=== PATIENT | female | born 1940 | race Caucasian/White ===

== ENCOUNTER 2021-01-07 12:29 | Outpatient (REF) | payer MEDICARE, BC, SELFPAY ==
--- NOTE | ~2021-01-07 | MM_ITS ---
EXAMINATION: MM SCREENING DIGITAL BREAST TOMOSYNTHESIS, BILATERAL CLINICAL INFORMATION: Right breast cancer 2009 status post lumpectomy and radiation. Due for yearly. COMPARISON: Mammography: 10/18/2018, 02/02/2017, 12/02/2015 TECHNIQUE: Digital breast tomosynthesis is performed in both the craniocaudal and mediolateral oblique views along with computer-aided detection (CAD). Synthesized 2D images are generated from the tomosynthesis. Additional exaggerated right CC view is provided. FINDINGS: There are scattered areas of fibroglandular density (ACR BI-RADS breast composition Category b). Parenchymal pattern is similar to prior studies. The left breast is unremarkable. There is no interval mass or architectural abnormality or abnormal calcifications. The right breast has post therapy changes with reduced breast size and old stable scarring. There are benign coarse calcifications predominantly in the scar. There are no significant changes. MM/MM tomosynthesis screening BI IMPRESSION: No mammographic evidence of malignancy. Post therapy changes right breast. ASSESSMENT: BI-RADS 2: Benign RECOMMENDATION: Routine annual mammography screening. This patient's information was entered into a reminder system with a target due date for their next mammogram.
== END 2021-01-07 12:30 | disposition home or self-care (01) ==
LOC: HO.MAMMO 12:29
PROVIDERS: Visit Provider Internal Medicine Medical Oncology
DX: Z12.31 Encounter for screening mammogram for malignant neoplasm of breast (principal)
CPT/HCPCS: 77063; 77067

== ENCOUNTER 2021-10-18 09:59 | Outpatient (REF) | payer MEDICARE, BC, SELFPAY ==
--- NOTE | ~2021-10-18 | XR_ITS ---
EXAMINATION: XR CHEST CLINICAL INFORMATION: Shortness of breath COMPARISON: Previous chest x-ray April 2012 TECHNIQUE: 2 views of the chest were obtained. FINDINGS: The cardiac and mediastinal contours are stable. The lungs are clear. There is no pleural effusion or pneumothorax. There are surgical clips in the right axilla. There are degenerative changes of the spine. XR/XR chest 2V IMPRESSION: No evidence for acute disease in the chest.
[2021-10-18 10:20] LABS: MANUAL DIFF FLAG NO
[2021-10-18 10:42] LABS: Basophils Percent Auto 0.4 % (0-2); Eosinophils Absolute Auto 0.2 X10*3/uL (0.0-0.4); Hematocrit 42.8 % (37.0-47.0); Hemoglobin 14.2 g/dl (12.0-16.0); Imm Gran Abs Auto 0.02 X10*3/uL (0.00-0.03); Imm Gran Pct Auto 0.3 % (0.0-0.4); Lymphocytes Absolute Auto 1.8 X10*3/uL (1.2-4.9); Lymphocytes Percent Auto 24.4 % (20-40); Mean Corpuscular HGB Conc 33.2 g/dl (31.0-35.0); Mean Corpuscular Hemoglobin 29.4 pg (27.0-33.0); Mean Corpuscular Volume 88.6 fL (80.0-98.0); Mean Platelet Volume 11.4 fL (9.4-12.3); Monocytes Absolute Auto 0.6 X10*3/uL (0.1-1.2); Monocytes Percent Auto 7.9 % (2-11); Neutrophils Absolute Auto 4.9 x10*3/uL (2.0-8.3); Platelet Count 284 X10*3/uL (160-400); Red Blood Count 4.83 X10*6/uL (4.20-5.50); Red Cell Distribution Width 13.5 % (11.0-16.0); White Blood Count 7.6 X10*3/uL (4.8-10.8)
[2021-10-18 11:31] LABS: Alanine Aminotransferase 17 U/L (0-31); Albumin Level 4.3 g/dL (3.5-5.0); Alkaline Phosphatase 64 U/L (39-117); Anion Gap 14 (12-20); Aspartate Amino Transferase 19 U/L (5-31); Bilirubin Total 0.3 mg/dL (0.0-1.0); Blood Urea Nitrogen 29 mg/dL (9-16); Calcium 9.7 mg/dL (8.4-10.2); Carbon Dioxide 26 mmol/L (22-29); Chloride 105 mmol/L (96-108); Cholesterol 208 mg/dL; Estimated Glomerular Filt Rate 46; Glucose Fasting 107 mg/dL (60-99); HDL Cholesterol 45 mg/dL; LDL Cholesterol Calculated 125 mg/dl; Potassium 4.2 mmol/L (3.3-5.1); Sodium 141 mmol/L (135-145); Total Protein 7.4 g/dL (6.5-8.0); Triglycerides 191 mg/dL
== END 2021-10-18 10:00 | disposition home or self-care (01) ==
LOC: HO.LAB 09:59
PROVIDERS: PCP Internal Medicine Medical Oncology; Visit Provider Internal Medicine Medical Oncology
DX: E78.5 Hyperlipidemia, unspecified (principal); I10 Essential (primary) hypertension; R06.02 Shortness of breath
CPT/HCPCS: 36415; 71046; 80053; 80061; 85025

== ENCOUNTER 2022-06-02 11:48 | Outpatient (REF) | payer MEDICARE, BC, SELFPAY ==
--- NOTE | ~2022-06-02 | MM_ITS ---
EXAMINATION: MM SCREENING DIGITAL BREAST TOMOSYNTHESIS, BILATERAL CLINICAL INFORMATION: Right lumpectomy for breast cancer, 2008. Due for yearly. COMPARISON: Mammography: 01/07/2021, 10/18/2018, 02/02/2017 TECHNIQUE: Digital breast tomosynthesis is performed in both the craniocaudal and mediolateral oblique views along with computer-aided detection (CAD). Synthesized 2D images are generated from the tomosynthesis. Additional right MLO view is provided. FINDINGS: There are scattered areas of fibroglandular density (ACR BI-RADS breast composition Category b). The parenchymal pattern is similar to prior studies and there is no developing density or interval mass or architectural abnormality. Left breast shows no abnormal calcifications. Right breast again shows post therapy changes with decreased breast size and old scarring posterior upper breast. There are benign coarse calcifications within the scar. In addition, some fine calcifications versus pseudocalcification digital processing artifact in the scar. Patient will be recalled for additional magnification views to fully characterize. MM/MM tomosynthesis screening BI IMPRESSION: Right: -Post therapy changes with old scarring posterior upper breast. -Question fine calcifications versus pseudocalcification digital processing artifact in the scar. Left: -No mammographic evidence of malignancy. ASSESSMENT: BI-RADS 0: Incomplete - Need Additional Imaging Evaluation RECOMMENDATION: 1. Additional views of the right breast (magnification CC, magnification ML). 2. Radiology department staff will contact the patient for additional imaging. This patient's information was entered into a reminder system with a target due date for their next mammogram.
== END 2022-06-02 11:49 | disposition home or self-care (01) ==
LOC: HO.MAMMO 11:48
PROVIDERS: PCP Internal Medicine Medical Oncology; Visit Provider Internal Medicine Medical Oncology
DX: Z12.31 Encounter for screening mammogram for malignant neoplasm of breast (principal)
CPT/HCPCS: 77063; 77067

== ENCOUNTER 2022-06-12 11:09 | Outpatient (REF) | payer MEDICARE, BC, SELFPAY ==
--- NOTE | ~2022-06-12 | MM_ITS ---
EXAMINATION: MM DIAGNOSTIC DIGITAL MAMMOGRAPHY, RIGHT CLINICAL INFORMATION: Recall from screening for question of fine calcifications versus pseudocalcification digital processing artifact in the lumpectomy scar. COMPARISON: Mammography: 06/02/2022, 01/07/2021, 10/18/2018 TECHNIQUE: Digital mammography is performed in the following views: Magnification spot CC, magnification spot ML. FINDINGS: There are scattered areas of fibroglandular density (ACR BI-RADS breast composition Category b). The additional views show benign-appearing coarse calcifications in the lumpectomy scar is similar to prior studies. No interval suspicious changes. Results are discussed with the patient and family at time of visit. MM/MM added views RT IMPRESSION: Additional views show no significant changes from prior studies. ASSESSMENT: BI-RADS 2: Benign RECOMMENDATION: Routine annual mammography screening. This patient's information was entered into a reminder system with a target due date for their next mammogram.
== END 2022-06-12 11:10 | disposition home or self-care (01) ==
LOC: HO.MAMMO 11:09
PROVIDERS: PCP Internal Medicine Medical Oncology; Visit Provider Internal Medicine Medical Oncology
DX: R92.1 Mammographic calcification found on diagnostic imaging of breast (principal)
CPT/HCPCS: 77065

== ENCOUNTER → 2022-07-17 11:33 | Outpatient (BNVA) | payer MEDICARE, BC, SELFPAY | PROVIDERS: PCP Internal Medicine Medical Oncology; Visit Provider Nurse Practitioner Family | DX: R25.1 Tremor, unspecified (principal); R29.818 Other symptoms and signs involving the nervous system; J38.3 Other diseases of vocal cords | CPT/HCPCS: 99212 ==

== ENCOUNTER 2023-03-01 10:32 | Outpatient (REF) | payer MEDICARE, BC, SELFPAY ==
--- NOTE | ~2023-03-01 | XR_ITS ---
EXAMINATION: XR LUMBOSACRAL SPINE CLINICAL INFORMATION: Acute right-sided back pain. COMPARISON: 07/04/2018 lumbar spine radiographs. TECHNIQUE: Three views of the lumbosacral spine. FINDINGS: Moderate to severe degenerative disc disease is seen at L5-S1 with disc space narrowing, sclerosis and vacuum disc. Bilateral neural foraminal narrowing and facet arthropathy seen at this level as well. Mild grade 1 anterolisthesis of L4 over L5. Mild to moderate degenerative changes in the remainder of the lumbar spine most pronounced at L1-2 and L2-3. There is no acute fracture. The soft tissues are unremarkable. XR/XR lumbar spine 2-3V IMPRESSION: 1. L5-S1 moderate to severe degenerative disc disease and bilateral neural foraminal narrowing. 2. L4-5 mild grade 1 anterolisthesis. 3. Mild to moderate degenerative changes in the remainder of the lumbar spine.
== END 2023-03-01 10:33 | disposition home or self-care (01) ==
LOC: HO.XRAY 10:32
PROVIDERS: PCP Internal Medicine Medical Oncology; Visit Provider Internal Medicine Medical Oncology
DX: M54.50 Low back pain, unspecified (principal)
CPT/HCPCS: 72100

== ENCOUNTER 2023-04-24 11:39 | Outpatient (AMB) | payer MEDICARE, BC, SELFPAY ==
--- NOTE | 2023-04-24 11:41 | MHC.OFFVIS ---
Intake Vital Signs 04/24/23 11:42 Height 5 ft 4 in Weight 154 lb BMI 26.4 BP 130/70 Pulse 69 Pulse Source Pulse Oximeter Pulse Oximetry (%) 97 Oxygen Delivery Method Room Air Intake Visit Reasons: 3m follow up - Confirmed Intake Note: Patient presents for 3 month follow up. Patient states just the same I got a walker ordered from [facility] i was loosing my balance Allergies No Known Allergies Allergy (Verified 07/17/22 11:52) HPI HPI Comments History of Present Illness Details 82-yr-old female presents for f/u visit. Pt denies any significant interval medical history changes. 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 Her last Botox tx was 2-3 yrs ago. She feels it was helpful. And now it is becoming harder to speak. Denies any difficulty swallowing. Was feeling more stress, but feels this would be better if she does the botox tx as talking would be less stressful. Since the last visit, she requested a 4-wheeled seated walker, which we ordered. Pt states the walker makes her feel much more secure- has been very helpful with her balance. Denies any interval falls. She states tremor is nothing to speak of . She can still self-apply mascara and piano. She is trying to stay active- working and cleaning. [facility] Surgical History (Updated 07/17/22 @ 11:53 by Cristin Muñoz) H/O lumpectomy Knee joint replacement by other means Family History Father Cirrhosis of liver Social History Alcohol intake: never Patient Tobacco Use Status: Never used Tobacco Review of Systems Const All systems reviewed & are unremarkable except as noted in HPI and below Physical Exam Vital Signs: Last Vital Signs Pulse 69 04/24/23 11:42 BP 130/70 04/24/23 11:42 Pulse Ox 97 04/24/23 11:42 Oxygen Delivery Method Room Air 04/24/23 11:42 BMI result Body Mass Index 26.4 Const General: cooperative and no acute distress Resp Effort & Inspection: normal respiratory effort and able to speak in complete sentences Neuro Other: A&O x's 3 Spasmodic dysphonia Very mild BUE postural tremor. No UE tone. FFM intact Stands quickly, much steadier gait with using walker. . 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 Concur w/ re-establishing care w/ [facility] to resume Botox tx- will initiate referral if needed- pt will call. f/u in 9 months or sooner prn. 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
[2023-04-24 11:42] VITALS: BP 130/70; PULSE 69; O2SAT 97; BMI 26.4
== END 2023-04-24 12:11 | disposition home or self-care (01) ==
PROVIDERS: PCP Internal Medicine Medical Oncology; Visit Provider Nurse Practitioner Family
DX: J38.3 Other diseases of vocal cords (principal); R25.1 Tremor, unspecified; R26.9 Unspecified abnormalities of gait and mobility; R29.818 Other symptoms and signs involving the nervous system
CPT/HCPCS: 99213

== ENCOUNTER → 2023-04-24 11:39 | Outpatient (BNVA) | payer MEDICARE, BC, SELFPAY | PROVIDERS: PCP Internal Medicine Medical Oncology; Visit Provider Nurse Practitioner Family | DX: J38.3 Other diseases of vocal cords (principal); R25.1 Tremor, unspecified; R26.9 Unspecified abnormalities of gait and mobility; R29.818 Other symptoms and signs involving the nervous system | CPT/HCPCS: 99212 ==

== ENCOUNTER 2023-09-04 11:02 | Outpatient (AMB) | payer MEDICARE, BC, SELFPAY ==
--- NOTE | 2023-09-04 11:06 | MHC.OFFVIS ---
Intake Vital Signs 09/04/23 11:17 Height 5 ft 4 in Weight 152 lb BMI 26.1 BP 132/70 Blood Pressure Location Lt brachial Position Sitting Pulse 71 Pulse Source Pulse Oximeter Pulse Oximetry (%) 98 Oxygen Delivery Method Room Air Intake Visit Reasons: 9 mnts f/u appt - CONF Intake Note: Patient presents for 9 moths f/u balance is getting worse. Primary care doctor prescribed antidepressants and started to fall so she stop them. On 09/19/23 pt. is having a MRI appointment. Allergies No Known Allergies Allergy (Verified 09/04/23 11:15) Medication List - Last Reconciled 09/05/23 by RAFAELA Bonds amlodipine 10 mg PO DAILY propranolol 80 mg PO BID walker 4 wheeled walker w/ seat and brakes- use when walking HPI HPI Comments History of Present Illness Details 63-year-old female presents for follow-up of tremor and gait difficulties. Accompanied by her daughter. Patient reports that in the fall, she felt something come over her. She states her PCP felt she was depressed. She was started on sertraline and then citalopram. While on these medications she had increased falls. She felt like she was being pushed forward, although could fall sideways. One fall was particularly concerning, as it occurred while she was cooking. She did stop the citalopram in her last fall was in 3-4 days of stopping the citalopram. He does continue to take her amlodipine 10 mg q.a.m., propranolol 80 mg b.i.d., and lorazepam as needed. Since her tremor has been stable. She she states she has not had anymore it is pulling sensations. She is walking with a 4 wheeled walker. However she is still having difficulty getting in and out of the shower, even with a walk-in shower.. She is doing less overall, for instance she is not driving at this time she is no longer going to her piano glasses. She can feel tired at times, Arie lead down for few minutes. But she is still active in the house, tries to clean it does extend her. She now has a home health aide and she is struggling with the reality that she might need a home health aide at all. She still feels a sense of depression, but she does not understand why. She does not currently have a therapist. She felt that she wore her previous therapist. She denies orthostatic lightheadedness, dizziness, diplopia, headaches. [place] [facility] [place] [facility] Surgical History H/O lumpectomy Knee joint replacement by other means Family History Father Cirrhosis of liver Social History Alcohol intake: never Patient Tobacco Use Status: Never used Tobacco Physical Exam Vital Signs: Last Vital Signs Pulse 71 09/04/23 11:17 BP 132/70 09/04/23 11:17 Pulse Ox 98 09/04/23 11:17 Oxygen Delivery Method Room Air 09/04/23 11:17 BMI result Body Mass Index 26.1 Const General: cooperative and no acute distress Resp Effort & Inspection: normal respiratory effort and able to speak in complete sentences Neuro Other: A&O x's 3 Spasmodic dysphonia Very mild BUE postural tremor. Stands quickly, quick gait with using walker. . 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 Will request home physical and occupational therapy, for home safety, ADL, gait, fall risk, strength endurance eval and treat. As well as to obtain orthostatic blood pressure and heart rate x's 3 (BP & HR x's 2: After laying supine for 5 minutes, upon standing at 1 minute, upon standing at 3 minutes) Patient is homebound as she requires a walker and 1 assist to leave the house safely. Patient is no longer driving. Due to her gait difficulties and fall risk. Will refer patient for an in-person psychologist local to her. Upon review of orthostatics blood pressure and heart rate, consider reducing propranolol dose- note patient is hesitant to do this as sh has been on propranolol 80 mg b.i.d. for years. Patient has decided to hold contacting [facility] to resume Botox tx- for spasmodic dysphonia. Follow-up in 3 months or sooner This note is constructed using voice recognition software. While every effort has been made to ensure accuracy, bindery assistant errors may have been included. Orders: Referrals [facility] Referral J38.3 - Other diseases of vocal cords, R25.1 - Tremor, unspecified, R26.9 - Unspecified abnormalities of gait and mobility, R29.6 - Repeated falls, R29.818 - Other symptoms and signs involving the nervous system Psychology Referral F32.A - Depression, unspecified Coding Level of Care Code Est Pt Level 4 (07089) Diagnoses Gait disorder R26.9 Difficulty balancing R29.818 Frequent falls R29.6 Tremor R25.1 Spasmodic dysphonia J38.3 Depression F32.A
[2023-09-04 11:17] VITALS: BP 132/70; PULSE 71; O2SAT 98; BMI 26.1
== END 2023-09-04 12:11 | disposition home or self-care (01) ==
LOC: HO.HSMC 11:02
PROVIDERS: PCP Internal Medicine Medical Oncology; Visit Provider Nurse Practitioner Family
DX: R26.9 Unspecified abnormalities of gait and mobility (principal); R29.818 Other symptoms and signs involving the nervous system; R29.6 Repeated falls; R25.1 Tremor, unspecified; J38.3 Other diseases of vocal cords; F32.A Depression, unspecified
CPT/HCPCS: 99214

== ENCOUNTER → 2023-09-04 11:02 | Outpatient (BNVA) | payer MEDICARE, BC, SELFPAY | PROVIDERS: PCP Internal Medicine Medical Oncology; Visit Provider Nurse Practitioner Family | DX: R26.9 Unspecified abnormalities of gait and mobility (principal); R29.818 Other symptoms and signs involving the nervous system; R29.6 Repeated falls; R25.1 Tremor, unspecified; J38.3 Other diseases of vocal cords; F32.A Depression, unspecified | CPT/HCPCS: 99212 ==

== ENCOUNTER 2023-09-14 07:53 | Outpatient (REF) | payer MEDICARE, BC, SELFPAY ==
[2023-09-14 08:07] LABS: MANUAL DIFF FLAG NO
[2023-09-14 08:37] LABS: Basophils Absolute Auto 0.1 X10*3/uL (0.0-0.2); Basophils Percent Auto 0.7 % (0-2); Eosinophils Absolute Auto 0.3 X10*3/uL (0.0-0.4); Eosinophils Percent Auto 3.5 % (0-4); Hematocrit 42.4 % (37.0-47.0); Hemoglobin 14.3 g/dl (12.0-16.0); Imm Gran Abs Auto 0.04 X10*3/uL (0.00-0.03); Imm Gran Pct Auto 0.4 % (0.0-0.4); Lymphocytes Absolute Auto 1.9 X10*3/uL (1.2-4.9); Lymphocytes Percent Auto 21.2 % (20-40); Mean Corpuscular HGB Conc 33.7 g/dl (31.0-35.0); Mean Corpuscular Hemoglobin 30.2 pg (27.0-33.0); Mean Corpuscular Volume 89.5 fL (80.0-98.0); Monocytes Absolute Auto 0.7 X10*3/uL (0.1-1.2); Neutrophils Absolute Auto 5.9 x10*3/uL (2.0-8.3); Neutrophils Percent Auto 66.2 % (45-73); Platelet Count 253 X10*3/uL (160-400); Red Blood Count 4.74 X10*6/uL (4.20-5.50); Red Cell Distribution Width 13.2 % (11.0-16.0); White Blood Count 8.9 X10*3/uL (4.8-10.8)
[2023-09-14 09:14] LABS: Alanine Aminotransferase 21 U/L (0-31); Albumin Level 4.2 g/dL (3.5-5.0); Alkaline Phosphatase 61 U/L (39-117); Anion Gap 13 (12-20); Aspartate Amino Transferase 21 U/L (5-31); Bilirubin Total 0.6 mg/dL (0.0-1.0); Blood Urea Nitrogen 26 mg/dL (9-16); Calcium 9.7 mg/dL (8.4-10.2); Carbon Dioxide 26 mmol/L (22-29); Chloride 104 mmol/L (96-108); Cholesterol 229 mg/dL (<200); Estimated Glomerular Filt Rate > 60; Glucose Fasting 88 mg/dL (60-99); HDL Cholesterol 48 mg/dL (>40); LDL Cholesterol Calculated 154 mg/dL (<100); Potassium 3.8 mmol/L (3.3-5.1); Sodium 139 mmol/L (135-145); Total Protein 7.5 g/dL (6.5-8.0); Triglycerides 138 mg/dL (<150)
[2023-09-14 09:51] LABS: Vitamin B12 714 pg/mL (200-900)
[2023-09-21 16:53] LABS: Vitamin B1 19 nmol/L (8-30)
== END 2023-09-14 07:54 | disposition home or self-care (01) ==
LOC: HO.LAB 07:53
PROVIDERS: PCP Internal Medicine Medical Oncology; Visit Provider Internal Medicine Medical Oncology
DX: E78.5 Hyperlipidemia, unspecified (principal); E53.9 Vitamin B deficiency, unspecified
CPT/HCPCS: 36415; 80053; 80061; 82607; 84425; 85025

== ENCOUNTER 2023-09-19 09:17 | Outpatient (REF) | payer MEDICARE, BC, SELFPAY ==
--- NOTE | ~2023-09-19 | CT_ITS ---
EXAMINATION: CT head/brain w IV con CLINICAL INFORMATION: Reason for Exam ATAXIA GAIT COMPARISON: None. TECHNIQUE: Contiguous axial imaging was performed from the skull base to vertex following intravenous administration of 85 mL Omnipaque 350. Sagittal and coronal reformatted images were obtained. This CT examination was performed using dose optimization techniques as appropriate, variously including the following: * Automated exposure control * Adjustment of mA and/or kV according to patient size (this includes techniques or standardized protocols for targeted exams where dose is matched to indication/reason for exam; i.e. extremities or head) Use of iterative reconstruction technique DLP: 758 mGy-cm FINDINGS: Moderate global cerebral volume loss. Cerebellar atrophy mild cerebellar and superior vermian bilaterally. Patchy periventricular and deep white matter hypoattenuation is nonspecific but likely reflects sequelae of mild chronic microangiopathy. No territorial loss of cruz-white differentiation. No acute intracranial hemorrhage in limitations of postcontrast technique. No extra-axial fluid collection. No mass lesion, significant mass effect, or herniation pattern. Calcific plaque along the bilateral carotid siphons. Preserved contrast opacification of the intracranial vascular structures. Please note MRI would be more sensitive modality for assessment of pathologic intracranial enhancement. Lens replacements. Trace mucosal disease in the maxillary sinuses. No mastoid effusion. Osseous structures are intact. CT/CT head/brain w IV con IMPRESSION: No acute intracranial abnormality. Moderate global cerebral volume loss and mild bilateral cerebellar and superior vermian atrophy. Mild chronic microangiopathy.
[2023-09-19] MEDS: iohexoL 350 MG/ML 100 ML INFUS..BTL IV (09:52)
== END 2023-09-19 09:18 | disposition home or self-care (01) ==
LOC: HO.CT 09:17
PROVIDERS: PCP Internal Medicine Medical Oncology; Visit Provider Internal Medicine Medical Oncology
DX: R26.0 Ataxic gait (principal)
CPT/HCPCS: 70460; Q9967

== ENCOUNTER 2024-01-01 10:13 | Outpatient (AMB) | payer MEDICARE, BC, SELFPAY ==
[2024-01-01 10:14] VITALS: BP 122/70; PULSE 62; O2SAT 95; BMI 26.7
--- NOTE | 2024-01-01 10:14 | MHC.OFFVIS ---
Vital Signs 01/01/24 10:14 Height 5 ft 4 in Weight 155 lb 6 oz BMI 26.7 BP 122/70 Blood Pressure Location Rt brachial Position Sitting Pulse 62 Pulse Source Pulse Oximeter Pulse Oximetry (%) 95 Oxygen Delivery Method Room Air Intake Visit Reasons: 6 mnts-CONF Intake Note: Patient presents for 6 month follow up. my main issue is my balance, is off. Allergies No Known Allergies Allergy (Verified 01/01/24 10:17) Medication List - Last Reconciled 01/01/24 by RAFAELA Bonds amlodipine 10 mg PO DAILY propranolol 80 mg PO BID walker 4 wheeled walker w/ seat and brakes- use when walking HPI Comments Details: 83-yr-old female presents for f/u visit. Pt denies any significant interval medical history changes. Pt started home PT. Pt states she is working on vestibular and balance difficulties. Pt feels that this has been helpful, however she still needs to work on her balance. She feels more able to do some of things she was doing before- such as leaving the house. She is still off-balance when she bends over or when walking. Also if she becomes hungry- has always needed to eat frequently (as a child, she would be shaky if she was hungry, but not now). She denies dizziness or lightheadedness. Can feel the ground when she is walking. She denies any interval falls. Walking w/ a walker. The plan is for her to transition from home PT to out-pt PT. She feels her mood is better. Using Lorazepam prn sparingly- for anxiety which helps. She is playing the piano again- cannot drive to the lessons anymore- but is in contact w/ her medical pathology teacher. Her spasmotic dysphonia is stable. She had a f/u [facility] appt- and resumed Botox. She is not sure if the Botox was as effective as before, but it has been a few yrs since her last Botox tx. She denies any dysphagia. 09/19/23, CT/CT head/brain w IV con IMPRESSION: No acute intracranial abnormality. Moderate global cerebral volume loss and mild bilateral cerebellar and superior vermian atrophy. Mild chronic microangiopathy. [facility] Surgical History H/O lumpectomy Knee joint replacement by other means Family History Father Cirrhosis of liver Social History Alcohol intake: never Patient Tobacco Use Status: Never used Tobacco Review of Systems Const All systems reviewed & are unremarkable except as noted in HPI and below Physical Exam Vital Signs: Last Vital Signs Pulse 62 01/01/24 10:14 BP 122/70 01/01/24 10:14 Pulse Ox 95 01/01/24 10:14 Oxygen Delivery Method Room Air 01/01/24 10:14 BMI result Body Mass Index 26.7 Const General: cooperative and no acute distress Resp Effort & Inspection: normal respiratory effort and able to speak in complete sentences Neuro Other: A&O x's 3. Spasmotic dysphonia. No UE tremor noted. Stands quickly, good posture, wide based steps, unsteady without walker, steady w/ walker. 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 Moderate global cerebral volume loss and mild bilateral cerebellar and superior vermian atrophy. Mild chronic microangiopathy. Continue to optimize CV risk factors- BP is normotensive. Continue engaging in regular physical, social, and cognitive activities. Continue home PT, once completed, transition to out-pt PT. Continue Propranolol 80 mg b.i.d.- consider reducing if she develops lightheadedness. May continue Lorazepam prn- sparingly- advised it can cause balance issues. ? F/u w/ [facility] for Botox tx- for spasmodic dysphonia. ? Follow-up in 6 months or sooner Coding Level of Care Code Est Pt Level 4 (18114) Diagnoses Tremor R25.1 Difficulty balancing R29.818 Spasmodic dysphonia J38.3 Movement disorder G25.9
== END 2024-01-01 11:02 | disposition home or self-care (01) ==
PROVIDERS: PCP Internal Medicine Medical Oncology; Visit Provider Nurse Practitioner Family
DX: R25.1 Tremor, unspecified (principal); G25.9 Extrapyramidal and movement disorder, unspecified; R29.818 Other symptoms and signs involving the nervous system; J38.3 Other diseases of vocal cords
CPT/HCPCS: 99214

== ENCOUNTER → 2024-01-01 10:13 | Outpatient (BNVA) | payer MEDICARE, BC, SELFPAY | PROVIDERS: PCP Internal Medicine Medical Oncology; Visit Provider Nurse Practitioner Family | DX: R25.1 Tremor, unspecified (principal); G25.9 Extrapyramidal and movement disorder, unspecified; R29.818 Other symptoms and signs involving the nervous system; J38.3 Other diseases of vocal cords | CPT/HCPCS: 99212 ==

== ENCOUNTER 2024-04-18 10:30 | Outpatient (REF) | payer MEDICARE, BC, SELFPAY ==
--- NOTE | ~2024-04-18 | MM_ITS ---
EXAMINATION: MM SCREENING DIGITAL BREAST TOMOSYNTHESIS, BILATERAL CLINICAL INFORMATION: Screening. Asymptomatic. COMPARISON: Mammography: Comparison is made with available priors TECHNIQUE: Digital breast mammography with tomosynthesis is performed in both the craniocaudal and mediolateral oblique views along with computer-aided detection (CAD). FINDINGS: There are scattered areas of fibroglandular density (ACR BI-RADS breast composition Category b). Post right breast lumpectomy changes are stable. There are no significant masses, abnormal calcifications, or other abnormalities. MM/MM tomosynthesis screening BI IMPRESSION: No mammographic evidence of malignancy. ASSESSMENT: BI-RADS BI-RADS 2 - Benign Findings RECOMMENDATION: Routine annual mammography screening. 1 year F/U This examination should not preclude the clinical evaluation of a suspicious palpable abnormality. This patient's information was entered into a reminder system with a target due date for their next mammogram. Electronically signed by: Adore Zarate DO 05/01/2024 08:07 PM EDT
== END 2024-04-18 10:31 | disposition home or self-care (01) ==
LOC: HO.MAMMO 10:30
PROVIDERS: PCP Internal Medicine Medical Oncology; Visit Provider Internal Medicine Medical Oncology
DX: Z12.31 Encounter for screening mammogram for malignant neoplasm of breast (principal)
CPT/HCPCS: 77063; 77067

== ENCOUNTER → 2024-04-18 10:30 | Outpatient (BNV) | payer MEDICARE, BC, SELFPAY | PROVIDERS: PCP Internal Medicine Medical Oncology; Visit Provider Internal Medicine | DX: Z12.31 Encounter for screening mammogram for malignant neoplasm of breast (principal) | CPT/HCPCS: 77063; 77067 ==

== ENCOUNTER 2024-04-28 10:13 | Outpatient (REF) | payer MEDICARE, BC, SELFPAY ==
[2024-04-28 10:32] LABS: MANUAL DIFF FLAG NO
[2024-04-28 10:51] LABS: Basophils Absolute Auto 0.1 X10*3/uL (0.0-0.2); Basophils Percent Auto 0.7 % (0-2); Eosinophils Absolute Auto 0.3 X10*3/uL (0.0-0.4); Eosinophils Percent Auto 3.3 % (0-4); Hematocrit 42.9 % (37.0-47.0); Hemoglobin 14.5 g/dl (12.0-16.0); Imm Gran Abs Auto 0.03 X10*3/uL (0.00-0.03); Imm Gran Pct Auto 0.4 % (0.0-0.4); Lymphocytes Absolute Auto 1.8 X10*3/uL (1.2-4.9); Lymphocytes Percent Auto 21.9 % (20-40); Mean Corpuscular HGB Conc 33.8 g/dl (31.0-35.0); Mean Corpuscular Hemoglobin 30.5 pg (27.0-33.0); Mean Corpuscular Volume 90.3 fL (80.0-98.0); Mean Platelet Volume 11.2 fL (9.4-12.3); Monocytes Absolute Auto 0.7 X10*3/uL (0.1-1.2); Neutrophils Absolute Auto 5.3 x10*3/uL (2.0-8.3); Neutrophils Percent Auto 65.7 % (45-73); Platelet Count 247 X10*3/uL (160-400); Red Blood Count 4.75 X10*6/uL (4.20-5.50); Red Cell Distribution Width 13.2 % (11.0-16.0); White Blood Count 8.1 X10*3/uL (4.8-10.8)
[2024-04-28 11:31] LABS: Alanine Aminotransferase 23 U/L (0-31); Albumin Level 4.4 g/dL (3.5-5.0); Alkaline Phosphatase 55 U/L (39-117); Anion Gap 13 (12-20); Aspartate Amino Transferase 26 U/L (5-31); Bilirubin Total 0.6 mg/dL (0.0-1.0); Blood Urea Nitrogen 20 mg/dL (9-16); Calcium 9.8 mg/dL (8.4-10.2); Carbon Dioxide 28 mmol/L (22-29); Chloride 106 mmol/L (96-108); Cholesterol 231 mg/dL (<200); Estimated Glomerular Filt Rate 57; Glucose Fasting 101 mg/dL (60-99); HDL Cholesterol 45 mg/dL (>40); LDL Cholesterol Calculated 134 mg/dL (<100); Potassium 4.5 mmol/L (3.3-5.1); Sodium 142 mmol/L (135-145); Total Protein 7.6 g/dL (6.5-8.0); Triglycerides 263 mg/dL (<150)
[2024-04-28 11:55] LABS: Erythrocyte Sedimentation Rate 8 MM/HR (0-20)
== END 2024-04-28 10:14 | disposition home or self-care (01) ==
LOC: HO.LAB 10:13
PROVIDERS: PCP Internal Medicine Medical Oncology; Visit Provider Internal Medicine Medical Oncology
DX: E78.5 Hyperlipidemia, unspecified (principal); I10 Essential (primary) hypertension; E66.3 Overweight
CPT/HCPCS: 36415; 80053; 80061; 85025; 85652

== ENCOUNTER 2025-05-13 14:41 | Outpatient (AMB) | payer MEDICARE, BC, SELFPAY ==
--- NOTE | 2025-05-13 15:01 | MHC.OFFVIS ---
Intake Visit Reasons: Familial cerebellar degen F/U Allergies No Known Allergies Allergy (Verified 01/01/24 10:17) Medication List - Last Reconciled 05/13/25 by Scott Moreno MD amlodipine 10 mg PO DAILY propranolol 80 mg PO BID walker 4 wheeled walker w/ seat and brakes- use when walking HPI Comments Details: 84 yr woman who comes in with worsening speech and balance. Using a walker for 1 year. Had two further falls . Hurt right shoulder. Her mother had some balance problems also but not as bad. No dysphagia. Hand coordination is fine. Tried voice therapy in the past. Sx got worse after pneumonia. She was also diagnosed with benign essential tremors. When nervous, her hands shake. Hard to greens picker coffee. Head shaking is less. She notices this particularly if she is tired or stressed. Her MRI showed mild atrophy, appropriate for age and a few small T2 and flare hyperintensities which was age-related. No new symptoms have developed since her last visit 9 months ago. Feels her balance is off, but she still walks and bikes. [facility] Medical History (Updated 05/13/25 @ 15:32 by Scott Moreno MD) Depression Movement disorder Difficulty balancing Tremor Surgical History H/O lumpectomy Knee joint replacement by other means Family History Father Cirrhosis of liver Social History Alcohol intake: never Patient Tobacco Use Status: Never used Tobacco Review of Systems Const Details: Sleep:? Difficulty getting to sleep?denies.? Difficulty maintaining sleep?denies?.? Daytime sleepiness?denies.? ?? General/Constitutional:? Change in appetite?denies.? Fatigue?denies.? Fever?denies.? Weight gain?denies.? Weight loss?denies.? ?? Respiratory:? Shortness of breath?denies.? Chest pain?denies.? ?? Cardiovascular:? Chest pain at rest?denies.? Chest pain with exertion?denies.? Dizziness?denies.? Fluid accumulation in the legs?denies.? Irregular heartbeat?denies.? Palpitations?denies.? ?? Gastrointestinal:? Constipation?denies.? Diarrhea?denies.? Difficulty swallowing?denies.? Heartburn?denies.? Nausea?denies.? ?? Genitourinary:? Frequent urination?denies.? Urgency?denies.? Incontinence?denies.? ?? Musculoskeletal:? Neck pain?denies.? Back pain?denies.? Joint stiffness?denies.? Sciatica?denies.? ?? Neurologic:? Difficulty swallowing?denies.? Balance difficulty?denies.? Coordination?normal.? Difficulty speaking?denies.? Dizziness?denies.? Fainting?denies.? Gait abnormality?denies.? Headache?denies.? Loss of strength?denies.? Loss of use of extremity?denies.? Low back pain?denies.? Memory loss?denies.? Seizures?denies.? Tics?denies.? Tingling/Numbness?denies.? Transient loss of vision?denies.? Tremor?admits.? ?? Psychiatric:? Anxiety?denies.? Auditory/visual hallucinations?denies.? Delusions?denies.? Depressed mood?denies.? Stressors?denies.? Suicidal thoughts?denies.? ?? Physical Exam Neuro Other: Neurological: ? Abnormal neurological findings:?Speech is difficult to understand with a cerebellar component. Mild tremors of the upper extremity held out in front of her.Side to side head tremor at times..? Mental Status:?alert and oriented X 3,?Normal attention, orientation, memory and affect.? Cranial Nerves:?Pupils are equal, round and reactive to light. Fundoscopy shows normal disc bilaterally. External occular muscles are intact. Visual peraza are full, no ptosis. Face is symmetrical, no facial weakness or droop. Facial sensations are normal. Tongue protrudes in midline. Palate elevates symmetrically. Shoulder shrugging is normal..? Motor Examination:?Normal muscle tone, bulk and strength,?No atrophy or fasciculations,?No drift of the extended upper extremities,?Deep tendon reflexes are 2+?,?Plantars are flexor?.? Straight Leg Raising:?90 degrees.? Sensory Exam:?Normal light touch, temperature, pinprick, vibration and joint-position sensations?,?Rhomberg sign is absent.? Coordination:?no ataxia,?no titubation,?hilkxc-iz-pkii, zger-tilf-frqm test and rapid alternating movements were normal.? Gait Exam:?Within normal limits.? Cerebellar Signs:?Dqowex-cj-xidv and uohi-il-fbrg is normal,?no dysdiadochokinesia?.? Extrapyramidal System:?Minimal aric eto aric ehead tremor . No rigidity with normal facial expressions,?No bradykinesia, no bradyphrenia. Normal arm swing and posture. No propulsion or retropulsion.? Speech:?Severe dysarthria with tremor and explosive character to speech ..? Mini Mental Status Exam: ? Level of Consciousness:?Alert.? Orientation:?Knows correct year, month, date, day and season,?Knows correct city, county and state. Knows correct location and floor.? Registration:?Able to register 3 objects.? Attention:?Serial 7's performed accurately.? Recall:?Able to recall 3 out of 3 objects.? Language:?Normal spontaneous speech, fluency, repetition,naming, comprehension, reading and writing.? Total Score:?30/30.? General Examination: ? GENERAL APPEARANCE:?normal,?in no acute distress.? HEART:?S1, S2 normal,?no murmurs.? LUNGS:?clear anteriorly and posteriorly.? MUSCULOSKELETAL:?normal.? EXTREMITIES:?no edema.? PSYCH:?alert, oriented,?cognitive function intact,?cooperative with exam.? 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
== END 2025-05-13 15:37 | disposition home or self-care (01) ==
LOC: HO.HSM 14:41
PROVIDERS: PCP Internal Medicine Medical Oncology; Visit Provider Psychiatry & Neurology Neurology
DX: G31.89 Other specified degenerative diseases of nervous system (principal); G11.9 Hereditary ataxia, unspecified
CPT/HCPCS: 99214

== ENCOUNTER → 2025-05-13 14:41 | Outpatient (BNVA) | payer MEDICARE, BC, SELFPAY | PROVIDERS: PCP Internal Medicine Medical Oncology; Visit Provider Psychiatry & Neurology Neurology | DX: G11.9 Hereditary ataxia, unspecified (principal); G31.89 Other specified degenerative diseases of nervous system | CPT/HCPCS: 99212 ==

== ENCOUNTER 2025-05-20 12:09 | Outpatient (REF) | payer MEDICARE, BC, SELFPAY ==
--- OUTSIDE RECORDS SUMMARY | 2024-07-11 12:27 | XMS_ITS ---
Author Organization Luis Carrington III, MD Address [address] [place] [address] [place] [address] Care Team Providers Care Music Specialist Name Role Phone Dr. Luis Carrington III Primary Care Provider [phone] REASON FOR VISIT Pharmacy Issue with medication Social History Sex Assigned At : Social History Observation Description Sex Assigned At Female Encounters Encounter Location Date Provider Diagnosis Luis Carrington III, MD [address] [place] [address] [place] [id number] 07/11/2024 Luis Carrington Plan Of Treatment Next Appt Details Provider Name:Luis Carrington , 07/22/2025 10:00:00 AM, [address] [place] [address] [place], [phone], Progress Notes * Jackie PANGOB:1940 (83 yo F)Acc No.[id number]:07/11/2024 Patient: Mariah Gretta RASMUSSEN :1940 A ge:83 Y S ex:Female Address:[address] [place] [address] * true * Date: Generated for Printi ng/Faxing/eTransmitting on: 1 03:24 PM EDT
--- OUTSIDE RECORDS SUMMARY | 2024-07-18 06:30 | XMS_ITS ---
Author Organization Luis Carrington III, MD Address [address] [place] [address] DR BARROSO [place] [id number] Care Team Providers Care Office Services Manager Name Role Phone Dr. Luis Carrington III Primary Care Provider [phone] Allergies Allergen (clinical drug ingredient) Drug/Non Drug Allergy documented on EMR Reaction Allergy Type Onset Date Status Dust Mites Unknown Allergy Active amoxicillin Amoxicillin Unknown Drug Allergy Act silvia REASON FOR VISIT Annual Exam Medications Medication SIG (Take, Route, Frequency, Duration) Notes Start Date End Date Status Propranolol HCl 80 MG TAKE 1 TABLET BY M OUTH TWICE A DAY Active Vitamin D 25 MCG (1000 UT) 1 tablet Oral ly Once a day 01/25/2024 Active LORazepam 0.5 MG 1 tablet Orally Once a day 04/11/2024 Active Vitamin D 25 MCG (1000 UT) 1 tablet Oral ly Once a day 12/29/2022 Active Tylenol 325 MG 1 tablet as needed O rally every 4 hrs Active amLODIPine Besylate 10 MG 1 tablet Orall y Once a day Active Citalopram Hydrobromide 10 MG TAKE 1 TABLET BY MOUTH EVERY DAY FOR 30 DAYS Active Social History Tobacco Use: Social History Observation Description Date Details (start date - stop date) Former Smoker NA - NA Sex Assigned At : Social History Observation Description Sex Assigned At Female Tobacco Use/Smoking Question Answer Notes Patient is a former smoker How long has it been since you last smoked? 5-10 years Additional Findings: Tobacco Non-User Ex-cigaret te smoker Alcohol Screen Question Answer Notes Did you have a drink containing alcohol in the p ast year? No Points 0 Interpretation Negative Problems Problem Type SNOMED Code ICD Code Onset Dates Problem Status W/U Status Risk Notes Problem Hyperlipidemia (02168760) Other hyperlipidemia (E78.4) Active confirmed Her lipids are currently stable. Her weight is stable. We reviewed her diet today. 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 We discussed this at length. She does not wish to take more medication at this time.The risks and benefits of statin medication were discussed with her at length. She declined a prescription. 07/18/2024 Breast cancer (ICD-10 - C50.919) There is currently no sign of relapse or a new primary. Surveillance will continue. A CT scan of the brain has been ordered to rule out metastatic disease. In view of the worsening cerebellar ataxia 07/18/2024 Former smoker (ICD-10 - Z87.891) She is highly motivated not to smoke. She feels well today and has no cough. We have a plan for prevention of relapse in times of stress and illness. 07/18/2024 Hypertension (ICD-10 - I10) We discussed reducing her blood pressure by lifestyle modification including a low sodium diet and weight loss. Her medications were not changed. 07/18/2024 Overweight (ICD-10 - E66.3) She remains slightly overweight. Her body mass index is 27. We discussed diet and nutrition today. I stressed the importance of stabilizing her weight at this level and possibly losing weight until her body mass index is in the normal range. 07/18/2024 Osteopenia (ICD-10 - M85.80) She will continue on current therapy and we will check her vitamin D. A bone density test has been ordered and is pending. 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 07/18/2024 Other hyperlipidemia (ICD-10 - E78.4) Her lipids are currently stable. Her weight is stable. We reviewed her diet today. Plan Of Treatment Medication Medication Name Sig Start Date Stop Date Notes Propranolol HCl 80 MG TAKE 1 TABLET BY M OUTH TWICE A DAY Vitamin D 25 MCG (1000 UT) 1 tablet Orally Once a day 01/05 LORazepam 0.5 MG 1 tablet Orally Once a day 04/11/2024 Vitamin D 25 MCG (1000 UT) 1 tablet Orally Once a day 12/05 Tylenol 325 MG 1 tablet as needed O rally every 4 hrs amLODIPine Besylate 10 MG 1 tablet Orally Once a day Citalopram Hydrobromide 10 MG TAKE 1 TAB LET BY MOUTH EVERY DAY FOR 30 DAYS Pending Test Test Name Order Date PROFILE, FASTING (COMPREHENSIVE METABOLI C) 07/18/2024 CBC WITH AUTO DIFF 07/18/2024 Lipid Panel 07/18/2024 Next Appt Details Follow Up: 4 Months, Reason: OV Provider Name:Luis Carrington , 07/22/2025 10:00:00 AM, [address] [place] [address] , [place] [address], [place], [id number], Progress Notes * POLY JackieOB:1940 (83 yo F)Acc No.[id number]:07/18/2024 Progress Notes Patient: Gretta QUINTANILLA Provider: Betty Carrington MD :1940 A ge:83 Y S ex:Female Date:07/18/2024 Address:[address] [place] [address] MARIS HERNANDEZ [id number] Subjective: * Chief Complaints: * A nnual Exam * HPI: D epression Screening: PHQ-9 L ittle interest or pleasure in doing things?Not at all F eeling down, depressed, or hopeless N ot at all T rouble falling or staying asleep, or sleeping too much N ot at all F eeling tired or having little energy S everal days P oor appetite or overeating N ot at all F eeling bad about yourself or that you are a failure, or have let yourself or your family down N ot at all T rouble concentrating on things, such as reading the newspaper or watching television N ot at all M oving or speaking so slowly that other people could have noticed; or the opposite, being so fidgety or restless that you have been moving around a lot more than usual N ot at all T houghts that you would be better off or of hurting yourself in some way N ot at all T otal Score 1 I nterpretation M inimal Depression F all Risk Screening: Fall History H ave you had any falls with injury in the past year? Y es H ave you had two or more falls in the past year? N o F all Risk Assessment: O ne fall with injury in the past year C OVID-19 Screening: Questions H ave you had any new onset fever, chills, cough, congestion, sore throat, shortness of breath, muscle aches? N o S MICK Questions: SDOH Questions I n the past year have you been worried about losing your housing? N o I n the past year have you or any family members you live with been unable to get any of the following when it was really needed? Check all that apply: N one * : The patient, an 83-year-old female, presented with a complaint of discomfort in her fingers. She reported no changes in her weight, maintaining a weight of 160 lbs. The patient's blood pressure was noted to be normal. The patient did not report any specific symptoms related to her fingers, such as changes in color or temperature. The patient's blood work was reported to be normal. The patient did not report any other symptoms or concerns. She has found no abnormalities on regular breast self examination. 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 No new findings were present on todday's examination. Current therapy was continued. She is up-to-date with mammography. * ROS: G eneral/Constitutional: pain o nly normal aches and pains. C hills d enies.?Fatigue a dmits. F ever d enies. E NT: Decreased hearing m ild. R espiratory: Cough d enies. C ardiovascular: Chest pain with exertion d enies. D yspnea on exertion?denies. S hortness of breath d enies. G astrointestinal: Constipation o ccasional. D ecreased appetite d enies. D iarrhea d enies. H eartburn d enies. N ausea d enies. R ectal bleeding d enies. V omiting d enies. H ematology: bruising d enies. p etechiae d enies. S wollen glands n one have been noted. G enitourinary: Frequent urination a small amount. M usculoskeletal: Muscle aches d enies. P ainful joints d enies. S ciatica d enies. W eakness d enies. S kin: Itching d enies. R leigh ann d enies. S kin lesion(s)?denies. N eurologic: Difficulty speaking D ysphonia continues. D izziness?denies. H eadache d enies. L ow back pain d enies. P sychiatric: Depressed mood w hich is mild. * Medical History: * Surgical History: l umpectomy right breast 1986left cataract 05/2019right cataract 06/2019right knee arthroplasty 07/21/2020 [facility] 07/2020No history * Hospitalization/Major Diagno stic Procedure: N o history * Family History: F ather: 85 yrs, cardiac disease, myocardial infarction, macular degeneration, cirrhosis, alcoholism. M other: 91 yrs, myocardial infarction, carotid artery stenosis, hyperlipidemia, hypertension, diagnosed with HTN, Hyperlipidemia. S iblings: alive. 1 brother(s) . 1 son(s) , 2 daughter(s) - healthy. . A brother has history of alcoholism. * Social History: T obacco Use: T obacco Use/Smoking P atient is a f ormer smoker H ow long has it been since you last smoked??5-10 years A dditional Findings: Tobacco Non-User E x-cigarette smoker D rugs/Alcohol: D rugs H ave you used drugs other than those for medical reasons in the past 12 months? N o Alcohol Screen D id you have a drink containing alcohol in the past year? N o P oints 0 I nterpretation N egative M iscellaneous: D omestic violence: no, none. { 'Smoking': 'No'}. * Medications: T akingLORazepam 0.5 MG Tablet 1 tablet Orally Once a day Vitamin D 25 MCG (1000 UT) Tablet 1 tablet Orally Once a day Tylenol 325 MG Tablet 1 tablet as needed Orally every 4 hrs Vitamin D 25 MCG (1000 UT) Tablet 1 tablet Orally Once a day Propranolol HCl 80 MG Tablet TAKE 1 TABLET BY MOUTH TWICE A DAY amLODIPine Besylate 10 MG Tablet 1 tablet Orally Once a day Taking LORazepam 0.5 MG Tablet 1 tablet Orally Once a day Taking Vitamin D 25 MCG (1000 UT) Tablet 1 tablet Orally Once a day Taking Tylenol 325 MG Tablet 1 tablet as needed Orally every 4 hrs Taking Vitamin D 25 MCG (1000 UT) Tablet 1 tablet Orally Once a day Taking Propranolol HCl 80 MG Tablet TAKE 1 TABLET BY MOUTH TWICE A DAY Taking amLODIPine Besylate 10 MG Tablet 1 tablet Orally Once a day Not-Taking/PRNCitalopram Hydrobromide 10 MG Tablet TAKE 1 TABLET BY MOUTH EVERY DAY FOR 30 DAYS Medication List reviewed and reconciled with the patientNot-Taking/PRN Citalopram Hydrobromide 10 MG Tablet TAKE 1 TABLET BY MOUTH EVERY DAY FOR 30 DAYS Medication List reviewed and reconciled with the patient * Allergies: D ust Mites: AllergyAmoxicillinno[Allergies Verified] Objective: * Vitals: H t: 64, Wt:160, BMI:27.46, BP:131/71, HR:63, Temp:97.3, Wt-k.57. * P ast Orders: Imaging:MAMMOGRAM DIGITAL BI LATERAL SCREEN * Performed Date 10/21/2018 02/05/2017 12/03/2015 08:28 AM 08:54 AM 09:14 AM Order Date 10/15/2018 01/30/2017 07/19/2015 04/18/2024 Result: undefined * Imaging:MM tomosynthesis scr eening BI * Performed Date 04/18/2024 06/02/2022 01/07/2021 10:35 AM 12:07 PM 12:30 PM Order Date 04/18/2024 06/02/2022 01/07/2021 * Lab:[facility] * Collection Date 04/28/2024 09/14/2023 10/18/2021 Collection Time 10:31 AM 08:05 AM 10:20 AM Order Date 04/28/2024 09/14/2023 10/18/2021 Sodium 142 (Ref Range: 135-145 mmol/L) 139 (Ref Range: 135-145 mmol/L) 141 (Ref Range: 135-145 mmol/L) Bilirubin Total 0.6 (Ref Range: 0.0-1.0 mg/dL) 0.6 (Ref Range: 0.0-1.0 mg/dL) 0.3 (Ref Range: 0.0-1.0 mg/dL) Aspartate Amino Transferase 26 (Ref Range: 5-31 U/L) 21 (Ref Range: 5-31 U/L) 19 (Ref Range: 5-31 U/L) Alanine Aminotransferase 23 (Ref Range: 0-31 U/L) 21 (Ref Range: 0-31 U/L) 17 (Ref Range: 0-31 U/L) Total Protein 7.6 (Ref Range: 6.5-8.0 g/dL) 7.5 (Ref Range: 6.5-8.0 g/dL) 7.4 (Ref Range: 6.5-8.0 g/dL) Albumin Level 4.4 (Ref Range: 3.5-5.0 g/dL) 4.2 (Ref Range: 3.5-5.0 g/dL) 4.3 (Ref Range: 3.5-5.0 g/dL) Alkaline Phosphatase 55 (Ref Range: 39-117 U/L) 61 (Ref Range: 39-117 U/L) 64 (Ref Range: 39-117 U/L) Potassium 4.5 (Ref Range: 3.3-5.1 mmol/L) 3.8 (Ref Range: 3.3-5.1 mmol/L) 4.2 (Ref Range: 3.3-5.1 mmol/L) Chloride 106 (Ref Range: 96-108 mmol/L) 104 (Ref Range: 96-108 mmol/L) 105 (Ref Range: 96-108 mmol/L) Carbon Dioxide 28 (Ref Range: 22-29 mmol/L) 26 (Ref Range: 22-29 mmol/L) 26 (Ref Range: 22-29 mmol/L) Anion Gap 13 (Ref Range: 12-20) 13 (Ref Range: 12-20) 14 (Ref Range: 12-20) Blood Urea Nitrogen 20 H (Ref Range: 9-16 mg/dL) 26 H (Ref Range: 9-16 mg/dL) 29 H (Ref Range: 9-16 mg/dL) Creatinine 0.94 (Ref Range: 0.5-1.4 mg/dL) 0.85 (Ref Range: 0.5-1.4 mg/dL) 1.14 (Ref Range: 0.5-1.4 mg/dL) Estimated Glomerular Filt Rate 57 > 60 46 Glucose Fasting 101 H (Ref Range: 60-99 mg/dL) 88 (Ref Range: 60-99 mg/dL) 107 H (Ref Range: 60-99 mg/dL) Calcium 9.8 (Ref Range: 8.4-10.2 mg/dL) 9.7 (Ref Range: 8.4-10.2 mg/dL) 9.7 (Ref Range: 8.4-10.2 mg/dL) ???Lab:Erythrocyte Sedimentation Rate (Order Date - 04/28/2024) (Collection Date & Time - 04/28/2024 10:31 AM)?ValueReference Range?Erythrocyte Sedimentation [id number] - MM/HR * Lab:Complete Blood Count Aut o Diff * Collection Date 04/28/2024 09/14/2023 10/18/2021 Collection Time 10:31 AM 08:05 AM 10:20 AM Order Date 04/28/2024 09/14/2023 10/18/2021 White Blood Count 8.1 (Ref Range: 4.8-10.8 X10*3/uL) 8.9 (Ref Range: 4.8-10.8 X10*3/uL) 7.6 (Ref Range: 4.8-10.8 X10*3/uL) Red Blood Count 4.75 (Ref Range: 4.20-5.50 X10*6/uL) 4.74 (Ref Range: 4.20-5.50 X10*6/uL) 4.83 (Ref Range: 4.20-5.50 X10*6/uL) Hemoglobin 14.5 (Ref Range: 12.0-16.0 g/dl) 14.3 (Ref Range: 12.0-16.0 g/dl) 14.2 (Ref Range: 12.0-16.0 g/dl) Hematocrit 42.9 (Ref Range: 37.0-47.0 %) 42.4 (Ref Range: 37.0-47.0 %) 42.8 (Ref Range: 37.0-47.0 %) Mean Corpuscular Volume 90.3 (Ref Range: 80.0-98.0 fL) 89.5 (Ref Range: 80.0-98.0 fL) 88.6 (Ref Range: 80.0-98.0 fL) Mean Corpuscular Hemoglobin 30.5 (Ref Range: 27.0-33.0 pg) 30.2 (Ref Range: 27.0-33.0 pg) 29.4 (Ref Range: 27.0-33.0 pg) Mean Corpuscular HGB Conc 33.8 (Ref Range: 31.0-35.0 g/dl) 33.7 (Ref Range: 31.0-35.0 g/dl) 33.2 (Ref Range: 31.0-35.0 g/dl) Red Cell Distribution Width 13.2 (Ref Range: 11.0-16.0 %) 13.2 (Ref Range: 11.0-16.0 %) 13.5 (Ref Range: 11.0-16.0 %) Platelet Count 247 (Ref Range: 160-400 X10*3/uL) 253 (Ref Range: 160-400 X10*3/uL) 284 (Ref Range: 160-400 X10*3/uL) Mean Platelet Volume 11.2 (Ref Range: 9.4-12.3 fL) 11.0 (Ref Range: 9.4-12.3 fL) 11.4 (Ref Range: 9.4-12.3 fL) Neutrophils Percent Auto 65.7 (Ref Range: 45-73 %) 66.2 (Ref Range: 45-73 %) 65.0 (Ref Range: 45-73 %) Imm Gran Pct Auto 0.4 (Ref Range: 0.0-0.4 %) 0.4 (Ref Range: 0.0-0.4 %) 0.3 (Ref Range: 0.0-0.4 %) Lymphocytes Percent Auto 21.9 (Ref Range: 20-40 %) 21.2 (Ref Range: 20-40 %) 24.4 (Ref Range: 20-40 %) Monocytes Percent Auto 8.0 (Ref Range: 2-11 %) 8.0 (Ref Range: 2-11 %) 7.9 (Ref Range: 2-11 %) Eosinophils Percent Auto 3.3 (Ref Range: 0-4 %) 3.5 (Ref Range: 0-4 %) 2.0 (Ref Range: 0-4 %) Basophils Percent Auto 0.7 (Ref Range: 0-2 %) 0.7 (Ref Range: 0-2 %) 0.4 (Ref Range: 0-2 %) NRBC Pct Auto 0.0 (Ref Range: 0.0-0.2 /100WBC) 0.0 (Ref Range: 0.0-0.2 /100WBC) 0.0 (Ref Range: 0.0-0.2 /100WBC) Neutrophils Absolute Auto 5.3 (Ref Range: 2.0-8.3 x10*3/uL) 5.9 (Ref Range: 2.0-8.3 x10*3/uL) 4.9 (Ref Range: 2.0-8.3 x10*3/uL) Imm Gran Abs Auto 0.03 (Ref Range: 0.00-0.03 X10*3/uL) 0.04 H (Ref Range: 0.00-0.03 X10*3/uL) 0.02 (Ref Range: 0.00-0.03 X10*3/uL) Lymphocytes Absolute Auto 1.8 (Ref Range: 1.2-4.9 X10*3/uL) 1.9 (Ref Range: 1.2-4.9 X10*3/uL) 1.8 (Ref Range: 1.2-4.9 X10*3/uL) Monocytes Absolute Auto 0.7 (Ref Range: 0.1-1.2 X10*3/uL) 0.7 (Ref Range: 0.1-1.2 X10*3/uL) 0.6 (Ref Range: 0.1-1.2 X10*3/uL) Eosinophils Absolute Auto 0.3 (Ref Range: 0.0-0.4 X10*3/uL) 0.3 (Ref Range: 0.0-0.4 X10*3/uL) 0.2 (Ref Range: 0.0-0.4 X10*3/uL) Basophils Absolute Auto 0.1 (Ref Range: 0.0-0.2 X10*3/uL) 0.1 (Ref Range: 0.0-0.2 X10*3/uL) 0.0 (Ref Range: 0.0-0.2 X10*3/uL) NRBC Abs Auto 0.000 (Ref Range: 0.0-0.012 X10*3/uL) 0.000 (Ref Range: 0.0-0.012 X10*3/uL) 0.000 (Ref Range: 0.0-0.012 X10*3/uL) * Lab:Lipid Panel * Collection Date 04/28/2024 09/14/2023 10/18/2021 Collection Time 10:31 AM 08:05 AM 10:20 AM Order Date 04/28/2024 09/14/2023 10/18/2021 Triglycerides 263 H (Ref Range: <150 mg/dL) 138 (Ref Range: <150 mg/dL) 191 (Ref Range: mg/dL) Cholesterol 231 H (Ref Range: <200 mg/dL) 229 H (Ref Range: <200 mg/dL) 208 (Ref Range: mg/dL) LDL Cholesterol Calculated 134 H (Ref Range: <100 mg/dL) 154 H (Ref Range: <100 mg/dL) 125 (Ref Range: mg/dl) HDL Cholesterol 45 (Ref Range: >40 mg/dL) 48 (Ref Range: >40 mg/dL) 45 (Ref Range: mg/dL) * Examination: G eneral Examination: GENERAL APPEARANCE: p leasant, well nourished, well developed, in no acute distress, calm and relaxed, overweight, elderly woman. HEAD: a traumatic, normocephalic. EYES: e caryl, perrla, anicteric, conjugate. EARS: n ormal. NOSE: s eptum intact. ORAL CAVITY: n ormal, unremarkable. NECK/THYROID: n o jugular venous distention, no carotid bruit, thyroid normal. LYMPH NODES: n o enlarged lymph nodes,spleen normal. SKIN: n o suspicious lesions, anicteric. HEART: n o clicks, gallops, murmurs, or rubs, regular rhythm, S1, S2 normal, no s3, or vascular bruits. LUNGS: c lear to auscultation . BREASTS: n o dimpling, no discharge, no drainage, no masses palpable bilaterally, nontender,Right breast smaller, healed lumpectomy scar right breast. ABDOMEN: b owel sounds normal, no ascites, no organomegaly, no mass. RECTAL EXAM: n ot examined. MUSCULOSKELETAL: e xtremities unremarkable, no clubbing, cyanosis or edema. PERIPHERAL PULSES: n ormal. NEUROLOGIC: a lert and oriented, cranial nerves 2-12 grossly intact, deep tendon reflexes 2+ symmetrical, motor strength normal upper and lower extremities, sensory exam intact, Clarity of voice is lacking due to spasmodic dysphonia.. PSYCH: a lert, oriented, cognitive function intact, cooperative with exam, good eye contact, Speech is dysphonic. - : { 'Fingers':'No specific findings', 'Ears': 'Normal', 'Eyes': 'Normal', 'Lungs': 'Normal', 'Heart': 'Normal'}. Assessment: * Assessment: 1. B reast cancer - C50.919 (Primary) N otes :There is currently no sign of relapse or a new primary. Surveillance will continue. A CT scan of the brain has been ordered to rule out metastatic disease. In view of the worsening cerebellar ataxia 2 . H yperlipidemia - E78.5 N otes :Her cholesterol is slightly high. We discussed this at length. She does not wish to take more medication at this time.The risks and benefits of statin medication were discussed with her at length. She declined a prescription. 3 . F ormer smoker - Z87.891 N otes :She is highly motivated not to smoke. She feels well today and has no cough. We have a plan for prevention of relapse in times of stress and illness. 4 . H ypertension - I10 N otes :We discussed reducing her blood pressure by lifestyle modification including a low sodium diet and weight loss. Her medications were not changed. 5 . O verweight - E66.3 N otes :She remains slightly overweight. Her body mass index is 27. We discussed diet and nutrition today. I stressed the importance of stabilizing her weight at this level and possibly losing weight until her body mass index is in the normal range. 6 . O steopenia - M85.80 N otes :She will continue on current therapy and we will check her vitamin D. A bone density test has been ordered and is pending. 7 . 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 8 . O ther hyperlipidemia - E78.4 N otes :Her lipids are currently stable. Her weight is stable. We reviewed her diet today. Plan: * Treatment: 2. O thers Continue Citalopram Hydrobromide Tablet, 10 MG, TAKE 1 TABLET BY MOUTH EVERY DAY FOR 30 DAYS; C ontinue LORazepam Tablet, 0.5 MG, 1 tablet, Orally, Once a day; C ontinue Vitamin D Tablet, 25 MCG (1000 UT), 1 tablet, Orally, Once a day. * Procedure Codes: * Preventive Medicine: Counseling: C are goal follow-up plan: Counseling for abnormal BMI given Y es Above Normal BMI Follow-up D ietary management education, guidance, and counseling, Dietary needs education, Exercise promotion: strength training, Exercise promotion: stretching, Feeding regime, Giving encouragement to exercise, Lifestyle education regarding diet, Nutrition / feeding management, Nutrition therapy, Prescribed activity/exercise education, Prescribed diet education, Prescribed dietary intake, Special diet education, Weight monitoring , Intervention, Order not done: Medical or Other reason not done S moking/Tobacco Use Patient counseled on the dangers of tobacco use and urged to quit. 1 09/18/2023 * Follow Up: 4 Months (Reason: OV) * Images: * Sign off status: Completed true * Provider: Betty Carrington MD Date: 1 09/18/2023 Generated for Lisa solis/Radha/Devaughn on: 1 03:23 PM EDT History and Physical Notes * HPI (History of Present Illness) Category Sub-Category Detail Notes Depression Screening PHQ-9 Little inte rest or pleasure in doing things: Not at all Feeling down, depressed, or hopeless: No t at all Trouble falling or staying asleep, or sl eeping too much: Not at all Feeling tired or having little energy: S everal days Poor appetite or overeating: Not at all Feeling bad about yourself o r that you are a failure, or have let yourself or your family down: Not at all Trouble concentrating on thi ngs, such as reading the newspaper or watching television: Not at all Moving or speaking so slowly that other people could have noticed; or the opposite, being so fidgety or restless that you have been moving around a lot more than usual: Not at all Thoughts that you would be b carli off or of hurting yourself in some way: Not at all Total Score: 1 Interpretation: Minimal Depression Fall Risk Screening Fall History Have you had any falls with injury in the past year?: Yes Have you had two or more falls in the st year?: No Fall Risk Assessment:: One fall with inj ury in the past year COVID-19 Screening Questions Have you had any new onset fever, chills, cough, congestion, sore throat, shortness of breath, muscle aches?: No SDOH Questions SDOH Questions In the past year have you been worried about losing your housing?: No In the past year have you or any family members you live with been unable to get any of the following when it was really needed? Check all that apply:: None Examination Category Sub-Category Detail Notes General Examination GENERAL APPEARANCE: pleasant , well nourished, well developed, in no acute distress, calm and relaxed, overweight, elderly woman HEAD: atraumatic, normocep halic EYES: eomi, perrla, anicte hailey, conjugate EARS: normal NOSE: septum intact NECK/THYROID: no jugular venous di stention, no carotid bruit, thyroid normal HEART: no clicks, gallops, murmurs, or rubs, regular rhythm, S1, S2 normal, no s3, or vascular bruits LUNGS: clear to auscultatio n ABDOMEN: bowel sounds normal, no ascites, no organomegaly, no mass NEUROLOGIC: alert and oriented, cranial nerves 2-12 grossly intact, deep tendon reflexes 2+ symmetrical, motor strength normal upper and lower extremities, sensory exam intact, Clarity of voice is lacking due to spasmodic dysphonia. SKIN: no suspicious lesion s, anicteric PERIPHERAL PULSES: normal BREASTS: no dimpling, no disc harge, no drainage, no masses palpable bilaterally, nontender,Right breast smaller, healed lumpectomy scar right breast MUSCULOSKELETAL: extremities unremark able, no clubbing, cyanosis or edema LYMPH NODES: no enlarged lymph no jackson,spleen normal RECTAL EXAM: not examined PSYCH: alert, oriented, cog nitive function intact, cooperative with exam, good eye contact, Speech is dysphonic ORAL CAVITY: normal, unremarkable
--- OUTSIDE RECORDS SUMMARY | 2024-11-17 06:00 | XMS_ITS ---
Author Organization Luis Carrington III, MD Address [address] [place] [address] [address] [place] [place] [address] Care Team Providers Care Superintendent Drivers Name Role Phone Dr. Luis Carrington III Primary Care Provider Allergies Allergen (clinical drug ingredient) Drug/Non Drug Allergy documented on EMR Reaction Allergy Type Onset Date Status Dust Mites Unknown Allergy Active amoxicillin Amoxicillin Unknown Drug Allergy Act silvia REASON FOR VISIT Spasmodic Dysphonia, Right breast cancer, Hypertension, Hyperlipidemia, Cerebellar ataxia Medications Medication SIG (Take, Route, Frequency, Duration) Notes Start Date End Date Status Vitamin D 25 MCG (1000 UT) 1 tablet Oral ly Once a day 01/25/2024 Active LORazepam 0.5 MG 1 tablet Orally Once a day 04/11/2024 Active Propranolol HCl 80 MG TAKE 1 TABLET [...] Additional Findings: Tobacco Non-User Ex-cigaret te smoker Vital Signs Temperature 98.1 degrees Fahrenheit 11/18/19 25 Blood pressure systolic 134 mm Hg 11/18/19 25 Blood pressure diastolic 75 mm Hg 025 Heart Rate 64 /min 11/17/2024 Height 64 in 11/17/2024 Weight 160 lbs 11/17/2024 BMI 27.46 kg/m2 11/17/2024 Encounters Encounter Location Date Provider Diagnosis Luis Carrington III, MD [address] [place] [address] [place] [address] 11/17/2024 Luis Carrington Hyperlipidemia E78.5 ; Hypertension I10 ; Vitamin D deficiency E55.9 ; Osteopenia M85.80 ; Former smoker Z87.891 ; Breast cancer C50.919 ; Overweight E66.3 and 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 Her lipids have been elevated in the past. We discussed this at length. She does not wish to take more medication at this time.The risks and benefits of statin medication were discussed with her at length. She declined a prescription. 11/17/2024 Hypertension (ICD-10 - I10) Her blood pressure is 134/75. No change in her regimen was needed. 11/17/2024 Vitamin D deficiency (ICD-10 - E55.9) She will be continued on her current supplement. 11/17/2024 Osteopenia (ICD-10 - M85.80) She will continue on current therapy and we will check her vitamin D. A bone density test has been ordered and is pending. 11/17/2024 Former smoker (ICD-10 - Z87.891) She is highly motivated not to smoke. She feels well today and has no cough. We have a plan for prevention of relapse in times of stress and illness. 11/17/2024 Breast cancer (ICD-10 - C50.919) There is currently no sign of relapse or a new primary. Surveillance will continue. A CT scan of the brain has been ordered to rule out metastatic disease. In view of the worsening cerebellar ataxia 11/17/2024 Overweight (ICD-10 - E66.3) She remains slightly overweight. Her body mass index is 27. We discussed diet and nutrition today. I stressed the importance of stabilizing her weight at this level and possibly losing weight until her body mass index is in the normal range. 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 Plan Of Treatment Medication Medication Name Sig Start Date Stop Date Notes Vitamin D 25 MCG (1000 UT) 1 tablet Orally Once a day 01/05 LORazepam 0.5 MG 1 tablet Orally Once a day 04/11/2024 Propranolol HCl 80 MG TAKE 1 TABLET [...] Order Date PROFILE, FASTING (COMPREHENSIVE METABOLI C) 11/17/2024 CBC w DIFF 11/17/2024 Lipid Panel 11/17/2024 Vitamin D 25-OH Total 11/17/2024 Next Appt Details Follow Up: 4 Months, Reason: ov review labs Provider Name:Luis Carrington , 07/22/2025 10:00:00 AM, [address] [place] [address] [facility], [address], Progress Notes * Jackie PANGOB:1940 (84 yo F)Acc No.[id number]:11/17/2024 Progress Notes Patient: Gretta QUINTANILLA Provider: Betty Carrington MD :1940 A ge:84 Y S ex:Female Date:11/17/2024 Address:[address] [place], [place] [address] [id number] Subjective: * Chief Complaints: * S pasmodic DysphoniaRight breast cancerHypertensionHyperlipidemiaCerebellar ataxia * HPI: C OVID-19 Screening: S he returns for a scheduled visit to manage her medical issues and surveillance of breast cancer. She is feeling healthy and well. She is coping with the disphonia. Breast self-examination has been negative. Her vital signs were stable today. There is no sign of recurrent malignancy. She reports her ex- has . Questions H ave you had any new onset fever, chills, cough, congestion, sore throat, shortness of breath, muscle aches? N o * ROS: G eneral/Constitutional: pain o nly normal aches and pains. C hills d enies.?Fatigue a dmits. F ever d enies. E NT: Decreased hearing d enies. R espiratory: Cough d enies. C ardiovascular: [...] have been noted. G enitourinary: Frequent urination d enies. M usculoskeletal: Muscle aches d enies. P ainful joints d enies. S ciatica d enies. W eakness d enies. S kin: Itching d enies. R leigh ann d enies. S kin lesion(s)?denies. N eurologic: Difficulty speaking H as received Botox or spasmodic dysphonia. D izziness d enies. H eadache d enies. L ow back pain d enies. ? P sychiatric: Depressed mood d enies. * Medical History: * Surgical History: l umpectomy right breast 1986left cataract 05/2019right cataract 06/2019right knee arthroplasty 07/21/2020 [facility] 07/2020No history * Hospitalization/Major Diagno stic Procedure: N o history * Family History: F ather: 85 yrs, cardiac disease, myocardial infarction, macular degeneration, cirrhosis, alcoholism. M other: 91 yrs, myocardial infarction, carotid artery stenosis, hyperlipidemia, hypertension, diagnosed with Hyperlipidemia, HTN. S iblings: alive. 1 brother(s) . 1 son(s) , 2 daughter(s) - healthy. . A brother has history of alcoholism. * Social History: T obacco Use: T obacco Use/Smoking P atdaniel is a f ormer smoker H ow long has it been since you last smoked??5-10 years A dditional Findings: Tobacco Non-User E x-cigarette smoker { 'Smoking': 'No'}. * Medications: T akingCitalopram Hydrobromide 10 MG Tablet TAKE 1 TABLET BY MOUTH EVERY DAY FOR 30 DAYS amLODIPine Besylate 10 MG Tablet 1 tablet Orally Once a day LORazepam 0.5 MG Tablet 1 tablet Orally Once a day Vitamin D 25 MCG (1000 UT) Tablet 1 tablet Orally Once a day Tylenol 325 MG Tablet 1 tablet as needed Orally every 4 hrs Vitamin D 25 MCG (1000 UT) Tablet 1 tablet Orally Once a day Propranolol HCl 80 MG Tablet TAKE 1 TABLET BY MOUTH TWICE A DAY Medication List reviewed and reconciled with the patientTaking Citalopram Hydrobromide 10 MG Tablet TAKE 1 TABLET BY MOUTH EVERY DAY FOR 30 DAYS Taking amLODIPine Besylate 10 MG Tablet 1 [...] 1 TABLET BY MOUTH TWICE A DAY Medication List reviewed and reconciled with the patient * Allergies: D ust Mites: AllergyAmoxicillinno[Allergies Verified] Objective: * Vitals: H t: 64, Wt:160, BMI:27.46, BP:134/75, HR:64, Temp:98.1, Wt-k.57. * Examination: G eneral Examination: GENERAL APPEARANCE: p leasant, well nourished, well developed, in no acute distress, calm and relaxed, overweight, woman. HEAD: a traumatic, normocephalic. EYES: e [...] LUNGS: c lear to auscultation . BREASTS: S urgical defect right breast also Percifield no masses palpable left breast unremarkable. ABDOMEN: b owel sounds normal, no ascites, no organomegaly, no mass. RECTAL EXAM: n ot examined. MUSCULOSKELETAL: e xtremities unremarkable, no clubbing, cyanosis or edema. PERIPHERAL PULSES: n ormal. NEUROLOGIC: a lert and oriented, cranial nerves 2-12 grossly intact, deep tendon reflexes 2+ symmetrical, motor strength normal upper and lower extremities, sensory exam intact, Spastic speech pattern. PSYCH: a lert, oriented. Assessment: * Assessment: 1. H ypertension - I10 (Primary) N otes :Her blood pressure is 134/75. No change in her regimen was needed. 2 . H yperlipidemia - E78.5 N otes :No blood work is available. Her lipids have been elevated in the past. Mariah arriaza discussed this at length. She does not wish to take more medication at this time.The risks and benefits of statin medication were discussed with her at length. She declined a prescription. 3 . V itamin D deficiency - E55.9 N otes :She will be continued on her current supplement. 4 . O steopenia - M85.80 N otes :She will continue on current therapy and we will check her vitamin D. A bone density test has been ordered and is pending. 5 . F ormer smoker - Z87.891 N otes :She is highly motivated not to smoke. She feels well today and has no cough. We have a plan for prevention of relapse in times of stress and illness. 6 . B reast cancer - C50.919 N otes :There is currently no sign of relapse or a new primary. Surveillance will continue. A CT scan of the brain has been ordered to rule out metastatic disease. In view of the worsening cerebellar ataxia 7 . O verweight - E66.3 N otes :She remains slightly overweight. Her body mass index is 27. We discussed diet and nutrition today. I stressed the importance of stabilizing her weight at this level and possibly losing weight until her body mass index is in the normal range. 8 . 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 Plan: * Treatment: 2. H yperlipidemia Continue amLODIPine Besylate Tablet, 10 MG, 1 tablet, Orally, Once a day; C ontinue Tylenol Tablet, 325 MG, 1 tablet as needed, Orally, every 4 hrs; C ontinue Vitamin D Tablet, 25 MCG (1000 UT), 1 tablet, Orally, Once a day; C ontinue Propranolol HCl Tablet, 80 MG, TAKE 1 TABLET BY MOUTH TWICE A DAY. L AB: PROFILE, FASTING (COMPREHENSIVE METABOLIC) L AB: CBC w DIFF L AB: Lipid Panel L AB: Vitamin D 25-OH Total 3. V itamin D deficiency L AB: PROFILE, FASTING (COMPREHENSIVE METABOLIC) L AB: CBC w DIFF L AB: Lipid Panel L AB: Vitamin D 25-OH Total 4. O thers Continue Citalopram Hydrobromide Tablet, 10 [...] management education, guidance, and counseling, Dietary needs education S moking/Tobacco Use Patient counseled on the dangers of tobacco use and urged to quit. 0 11/17/2024 * Follow Up: 4 Months (Reason: ov review labs) * Images: * Sign off status: Completed true * Provider: Betty Carrington MD Date: 0 11/17/2024 Generated for Lisa solis/Radha/Devaughn on: 1 03:23 PM EDT History and Physical Notes * HPI (History of Present Illness) Category Sub-Category Detail Notes COVID-19 Screening Questions Have you had any new onset fever, chills, cough, congestion, sore throat, shortness of breath, muscle aches?: No Examination Category Sub-Category Detail Notes General Examination GENERAL APPEARANCE: pleasant , well nourished, well developed, in no acute distress, calm and relaxed, overweight, woman HEAD: atraumatic, normocep halic EYES: eomi, [...] upper and lower extremities, sensory exam intact, Spastic speech pattern SKIN: no suspicious lesion s, anicteric PERIPHERAL PULSES: normal BREASTS: Surgical defect righ t breast also Percifield no masses palpable left breast unremarkable MUSCULOSKELETAL: extremities unremark able, no clubbing, cyanosis or edema LYMPH NODES: no enlarged lymph no jackson,spleen normal RECTAL EXAM: not examined PSYCH: alert, oriented ORAL CAVITY: normal, unremarkable
--- OUTSIDE RECORDS SUMMARY | 2024-12-26 11:26 | XMS_ITS ---
Author Organization Luis Carrington III, MD Address [address] [place] [address] [place] [address] Care Team Providers Care Applied Computer Science Professor Name Role Phone Dr. Luis Carrington III Primary Care Provider REASON FOR VISIT NEOS Referral Social History Sex Assigned At : Social History Observation Description Sex Assigned At Female Encounters Encounter Location Date Provider Diagnosis Luis Carrington III, MD [address] [place] [address] [place] [phone] 12/26/2024 Luis Carrington Plan Of Treatment Next Appt Details Provider Name:Luis Carrington , 07/22/2025 10:00:00 AM, [address] [place] [address] [place], [address], Progress Notes * Jackie PANGOB:1940 (84 yo F)Acc No.[id number]:12/26/2024 Patient: Mariah Gretta RASMUSSEN :1940 A ge:84 Y S ex:Female Address:[address] [place] [address] * true * Date: Generated for Printi ng/Faxing/eTransmitting on: 1 03:25 PM EDT
--- OUTSIDE RECORDS SUMMARY | 2025-03-23 06:00 | XMS_ITS ---
Author Organization Luis Carrington III, MD Address [address] [place] [address] [place] [address] Care Team Providers Care Family And Consumer Science Professor Name Role Phone Dr. Luis Carrington III Primary Care Provider Allergies Allergen (clinical drug ingredient) Drug/Non Drug Allergy documented on EMR Reaction Allergy Type Onset Date Status Dust Mites Unknown Allergy Active amoxicillin Amoxicillin Unknown Drug Allergy Act silvia Reason For Referral Reason bilateral hearing lo ss evaluate and treatment hearing aides needed Diagnosis 1 Bilateral hearing lo ss, unspecified hearing loss type (H91.93) Referral Organization Luis Carrington III, MD Referring Provider First Name Luis Referring Provider Last Name Charissa Referring Provider Speciality Internal M edicine Referred Provider Speech Hearing [facility] Referred Provider Specialty Audiologists General Notes Amber Dimas CMA 03/24 09:44:06 AM >ref/progress note faxed to speech and hearing dept at the [facility] pt aware of this, Amber Dimas CMA 04/13/2025 03:15:46 PM > I called jasen to Kimberly in Speech and hearing dept at and they stated pt has appt on 06/25/2025 at 2:45 pm Referral Priority Routine Referral Appointment Date 06/25/2025 REASON FOR VISIT . Breast cancer, Spasmodic dysphonia, Hypertension, Hyperlipidemia, Cerebellar ataxia, Bilateral hearing Medications Medication SIG (Take, Route, Frequency, Duration) Notes Start Date End Date Status Tylenol 325 MG 1 tablet as needed O rally every 4 hrs Active LORazepam 0.5 MG 1 tablet Orally Once a day 04/11/2024 Active Propranolol HCl 80 MG TAKE 1 TABLET BY M OUTH TWICE A DAY Active Vitamin D 25 MCG (1000 UT) 1 tablet Oral ly Once a day 12/29/2022 Active amLODIPine Besylate 10 MG 1 tablet [...] Non-User Ex-cigaret te smoker Vital Signs Temperature 98.8 degrees Fahrenheit 03/23/20 25 Blood pressure systolic 138 mm Hg 03/23/20 25 Blood pressure diastolic 72 mm Hg 025 Heart Rate 63 /min 03/23/2025 Height 64 in 03/23/2025 Weight 156 lbs 03/23/2025 BMI 26.77 kg/m2 03/23/2025 Encounters Encounter Location Date Provider Diagnosis Luis Carrington III, MD [address] [place] [address] [place] [address] 03/23/2025 Luis Carrington Hyperlipidemia E78.5 ; Breast cancer C50.919 ; Hypertension I10 ; Vitamin D deficiency E55.9 ; Overweight E66.3 ; Screening mammogram for breast cancer Z12.31 ; Former smoker Z87.891 and Osteopenia M85.80 Assessments Encounter Date Diagnosis (ICD Code) Assessment Notes Treat ment Notes Treatment Clinical Notes 03/23/2025 Hyperlipidemia (ICD-10 - E78.5) No blood work is available. Her lipids have been elevated in the past. We discussed this at length. She does not wish to take more medication at this time.The risks and benefits of statin medication were discussed with her at length. She declined a prescription. 03/23/2025 Breast cancer (ICD-1 0 - C50.919) There is currently no sign of relapse or a new primary. Surveillance will continue. A CT scan of the brain has been ordered to rule out metastatic disease. In view of the worsening cerebellar ataxia 03/23/2025 Hypertension (ICD-10 - I10) Her blood pressure today is 138/72 and no change in her regimen was necessary. 03/23/2025 Vitamin D deficiency (ICD-10 - E55.9) She was continued on her vitamin D therapy. 03/23/2025 Overweight (ICD-10 - E66.3) Her body mass index is 26.7. She has lost 4 pounds. We discussed diet and nutrition today. We made a weight loss plan. 03/23/2025 Screening mammogram for breast cancer (ICD-10 - Z12.31) Her annual mammogram has been scheduled. 03/23/2025 Former smoker (ICD-1 0 - Z87.891) She is highly motivated not to smoke. She feels well today and has no cough. We have a plan for prevention of relapse in times of stress and illness. 03/23/2025 Osteopenia (ICD-10 - M85.80) She will continue on current therapy and we will check her vitamin D. A bone density test has been ordered and is pending. Plan Of Treatment Medication Medication Name Sig Start Date Stop Date Notes Tylenol 325 MG 1 tablet as needed O rally every 4 hrs LORazepam 0.5 MG 1 tablet Orally Once a day 04/11/2024 Propranolol HCl 80 MG TAKE 1 TABLET BY M OUTH TWICE A DAY Vitamin D 25 MCG (1000 UT) 1 tablet Orally Once a day 12/05 amLODIPine Besylate 10 MG 1 tablet Orally Once a day Citalopram Hydrobromide 10 MG TAKE 1 TAB LET BY MOUTH EVERY DAY FOR 30 DAYS Pending Test Test Name Order Date PROFILE, FASTING (COMPREHENSIVE METABOLI C) 03/23/2025 CBC w DIFF 03/23/2025 Lipid Panel 03/23/2025 Vitamin D 25-OH Total 03/23/2025 MM tomosynthesis screening BI 03/23/2025 Referrals Referral Date Details 03/23/2025 03/23/2025gerardo hearing loss evaluate and treatment hearing aides needed, [facility] Next Appt Details Follow Up: 4 Months, Reason: ov review labs Provider Name:Luis Carrington , 07/22/2025 10:00:00 AM, [address] [place] [address] DR, [address], [place], [phone], Progress Notes * Jackie PANGOB:1940 (84 yo F)Acc No.[id number]:03/23/2025 Progress Notes Patient: Gretta QUINTANILLA Provider: Betty Carrington MD :1940 A ge:84 Y S ex:Female Date:03/23/2025 Address:[address] [place], [place] [address]MARIS [id number] Subjective: * Chief Complaints: * . Breast cancerSpasmodic dysphoniaHypertensionHyperlipidemiaCerebellar ataxiaBilateral hearing * HPI: C OVID-19 Screening: S he returns for a scheduled visit for medical management. Her breast cancer remains in relapse. We have scheduled her next screening mammogram. She is now using a wheeled walker because of her cerebellar ataxia. She has had no falls. She continues to have to spasmodic dysphonia but is understandable with patient's.She continues to do breast self-examination with negative results. Her hearing loss is unchanged. She is taking vitamin D supplements. Questions H ave you had any new onset fever, chills, cough, congestion, sore throat, shortness of breath, muscle aches? N o * ROS: G eneral/Constitutional: pain o nly normal aches and pains. C hills d enies.?Fatigue a dmits. F ever d enies. E NT: Decreased hearing i n both ears. R espiratory: Cough d enies. C ardiovascular: [...] been noted. G enitourinary: Frequent urination a t night. M usculoskeletal: Muscle aches d enies. P ainful joints d enies. S ciatica d enies. W eakness d enies. S kin: Itching d enies. R leigh ann d enies. S kin lesion(s)?denies. N eurologic: Difficulty speaking d enies. D izziness d enies.?Headache d enies. L ow back pain d enies. P sychiatric: Depressed mood d enies. * Medical History: * Surgical History: l umpectomy right breast 1986left cataract 05/2019right cataract 06/2019right knee arthroplasty 07/21/2020 [facility] 07/2020No history * Hospitalization/Major Diagno stic [...] TABLET BY MOUTH TWICE A DAY Taking Citalopram Hydrobromide 10 MG Tablet TAKE 1 [...] 1 TABLET BY MOUTH TWICE A DAY DiscontinuedVitamin D3 25 MCG (1000 UT) Tablet TAKE 1 TABLET BY MOUTH EVERY DAY FOR 30 DAYS Medication List reviewed and reconciled with the patientDiscontinued Vitamin D3 25 MCG (1000 UT) Tablet TAKE 1 TABLET BY MOUTH EVERY DAY FOR 30 DAYS Medication List reviewed and reconciled with the patient * Allergies: D ust Mites: AllergyAmoxicillinno[Allergies Verified] Objective: * Vitals: H t: 64, Wt:156, BMI:26.77, BP:138/72, HR:63, Temp:98.8, Wt-k.76. * Examination: G eneral Examination: GENERAL APPEARANCE: p leasant, well nourished, well developed, in no acute distress, calm and relaxed: overweight: : elderly woman. HEAD: a traumatic, normocephalic. EYES: [...] LUNGS: c lear to auscultation . BREASTS: no masses palpable bilaterally, All scars left breast field. ABDOMEN: b owel sounds normal, no ascites, no organomegaly, no mass: overweight. RECTAL EXAM: n ot examined. MUSCULOSKELETAL: e xtremities unremarkable, no clubbing, cyanosis or edema. PERIPHERAL PULSES: n ormal. NEUROLOGIC: a lert and oriented, cranial nerves 2-12 grossly intact, deep tendon reflexes 2+ symmetrical, motor strength normal upper and lower extremities, sensory exam intact, Speech is dystonic and spasmodic. PSYCH: a lert, oriented: thought process logical, goal directed: cognitive function intact. Assessment: * Assessment: 1. B reast cancer [...] length. She declined a prescription. 3 . H ypertension - I10 N otes :Her blood pressure today is 138/72 and no change in her regimen was necessary. 4 . V itamin D deficiency - E55.9 N otes :She was continued on her vitamin D therapy. 5 . O verweight - E66.3 N otes :Her body mass index is 26.7. She has lost 4 pounds. We discussed diet and nutrition today. We made a weight loss plan. 6 . S creening mammogram for breast cancer - Z12.31 N otes :Her annual mammogram has been scheduled. 7 . F ormer smoker - Z87.891 N otes :She is highly motivated not to smoke. She feels well today and has no cough. We have a plan for prevention of relapse in times of stress and illness. 8 . O steopenia - M85.80 N otes :She will continue on current therapy and we will check her vitamin D. A bone density test has been ordered and is pending. Plan: * Treatment: 2. H ypertension L AB: PROFILE, FASTING (COMPREHENSIVE METABOLIC) L AB: CBC w DIFF L AB: Lipid Panel L AB: Vitamin D 25-OH Total 3. V itamin D deficiency L AB: PROFILE, FASTING (COMPREHENSIVE METABOLIC) L AB: CBC w DIFF L AB: Lipid Panel L AB: Vitamin D 25-OH Total 4. O verweight L AB: PROFILE, FASTING (COMPREHENSIVE METABOLIC) L AB: CBC w DIFF L AB: Lipid Panel L AB: Vitamin D 25-OH Total 5. S creening mammogram for breast cancer I maging: MM tomosynthesis screening BI 6. O thers Continue Citalopram Hydrobromide Tablet, 10 MG, TAKE 1 TABLET BY MOUTH EVERY DAY FOR 30 DAYS; C ontinue LORazepam Tablet, 0.5 MG, 1 tablet, Orally, Once a day. ? Referral To:[facility] Audiologists Reason:bilateral hearing loss evaluate and treatment hearing aides needed * Procedure Codes: * Preventive Medicine: Counseling: C are goal follow-up plan: Counseling for abnormal BMI given Y es Above Normal BMI Follow-up D ietary management education, guidance, and counseling S moking/Tobacco Use Patient counseled on the dangers of tobacco use and urged to quit. 0 03/23/2025 * Follow Up: 4 Months (Reason: ov review labs) * Images: * Sign off status: Completed true * Provider: Betty Carrington MD Date: 0 03/23/2025 Generated for Lisa solis/Radha/eTransmitting on: 1 03:25 PM EDT History and Physical Notes * HPI (History of Present Illness) Category Sub-Category Detail Notes COVID-19 Screening Questions Have you had any new onset fever, chills, cough, congestion, sore throat, shortness of breath, muscle aches?: No Examination Category Sub-Category Detail Notes General Examination GENERAL APPEARANCE: pleasant , well nourished, well developed, in no acute distress, calm and relaxed: overweight: : elderly woman HEAD: atraumatic, normocep halic EYES: eomi, perrla, anicte hailey, conjugate EARS: normal NOSE: septum intact NECK/THYROID: no jugular venous di stention, no carotid bruit, thyroid normal HEART: no clicks, gallops, murmurs, or rubs, regular rhythm, S1, S2 normal, no s3, or vascular bruits LUNGS: clear to auscultatio n ABDOMEN: bowel sounds normal, no ascites, no organomegaly, no mass: overweight NEUROLOGIC: alert and oriented, cranial nerves 2-12 grossly intact, deep tendon reflexes 2+ symmetrical, motor strength normal upper and lower extremities, sensory exam intact, Speech is dystonic and spasmodic SKIN: no suspicious lesion s, anicteric PERIPHERAL PULSES: normal BREASTS: no masses palpable b ilaterally, All scars left breast field MUSCULOSKELETAL: extremities unremark able, no clubbing, cyanosis or edema LYMPH NODES: no enlarged lymph no jackson,spleen normal RECTAL EXAM: not examined PSYCH: alert, oriented: tho ught process logical, goal directed: cognitive function intact ORAL CAVITY: normal, unremarkable Consultation Request Notes Referral Date Referring Provider Referred Provider Not es 03/23/2025 [facility] and treatment hearing aides needed
--- NOTE | ~2025-05-20 | MM_ITS ---
EXAMINATION: MM SCREENING DIGITAL BREAST TOMOSYNTHESIS, BILATERAL CLINICAL INFORMATION: Screening. Asymptomatic. History of right breast cancer 40 years ago post lumpectomy. COMPARISON: Mammography: Comparison is made with available priors TECHNIQUE: Digital breast mammography with tomosynthesis is performed in both the craniocaudal and mediolateral oblique views along with computer-aided detection (CAD). FINDINGS: There are scattered areas of fibroglandular density. Right post lumpectomy changes. There are no significant masses, abnormal calcifications, or other abnormalities. MM/MM tomosynthesis screening BI IMPRESSION: No mammographic evidence of malignancy. ASSESSMENT: BI-RADS Category 2: Benign RECOMMENDATION: Routine annual mammography screening. 1 year F/U This examination should not preclude the clinical evaluation of a suspicious palpable abnormality. This patient's information was entered into a reminder system with a target due date for their next mammogram. Electronically signed by: Adore Zarate DO 05/20/2025 01:13 PM EDT
--- OUTSIDE RECORDS SUMMARY | 2025-05-20 15:24 | XMS_ITS ---
Author Name [facility] Organization Unknown History of Medication Use Medication Directions Dispensed Refills Start Date End Date Stat us onabotulinum toxin Type A (BOTOX THERAPEUTIC) injection 2 Units 12/10/2023 12/10/2023 complet ed propranolol (INDERAL) 80 mg tablet Take 80 mg by mouth. 09/26/2018 active amLODIPine (NORVASC) 10 mg tablet Take 10 mg by mouth. 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
--- OUTSIDE RECORDS SUMMARY | 2025-05-20 15:24 | XMS_ITS | Patient Health Record ---
Author Organization [facility] Address [address] [place] [address] Care Team Providers Care Furniture Lumber Production Worker Name Role Phone Charissa MCKOY, Luis Primary Care Provider Bhavani Guevara Unavailable [phone] Reason For Referral No Information Medications Medication SIG (Take, Route, Fr equency, Duration) Notes Start Date End Date Status Propranolol HCl Acti ve Norvasc Active Walking Boot/Pneumatic As directed Wear Daily; Duration: Until further notice 01/14/2016 Active Problems No Known Problems Plan Of Treatment No Information Insurance Providers Payer Name Payer Address Payer Phone Subscriber Number Group Number Insured Name Patient Relationship to Insured Coverage Start Date Coverage End Date Medicare National [employer] [address] [facility] [place] [address] [phone] [id number] Gretta Gomez Self - patient is the insured [facility] All Others [address] [place] [address] [phone] [id number] Michelle Gomezlie Self - patient is the insured Medical (General) History Medical History History ICD Code Cholesterol Cancer High blood pressure Measles Mumps Chicken pox Surgical History Surgery Date(Month/Year) breast surgery 1988 Hospitalization History Reason Date(Month/Year) Admitted to [facility] for pneamonia 5 day s.
--- OUTSIDE RECORDS SUMMARY | 2025-05-20 15:25 | XMS_ITS | Clinical Summary ---
Author Organization Formerly [facility] Address [address] [place] [address] Care Team Providers Care Respiratory Practitioner Name Role Phone Luis Carrington Primary Care Provider [phone] Luis Carrington Unavailable Allergies No known active allergies Medications amLODIPine (NORVASC) 10 mg tablet Take 10 mg by mouth. 3 09/02/2018 Active propranolol (INDERAL) 80 mg tablet Take 80 mg by mouth. 11 09/26/2018 Active Active Problems Problem Noted Date Diagnosed Date Dysphonia 04/22/2021 Laryngeal spasm 02/03/2019 Assessment & Plan (12/10/2023 8:15 AM EDT): Patient with a history of adductor spasmodic dysphonia. Today she received 2.0 units of botox into the RIGHT thyroid arytenoid muscle. Patient tolerated this well and will let us know how she does. Assessment & Plan (04/22/2021 8:38 AM EDT): Patient with a history of adductor spasmodic dysphonia. Today she received 2.0 units of botox into the left thyroid arytenoid muscle. Patient tolerated this well and will let us know how she does. Assessment & Plan (06/09/2019 1:06 PM EST): Patient with a history of adductor spasmodic dysphonia. She had good improvement following her last injection. On a scale of 1-100 with 100 being her best voicing, prior to her injection she rated her voice as a 25 and post injection she rated her voice at 75. Today she received 2.0 units of botox into the right thyroid arytenoid muscle. Patient tolerated this well and will let us know how she does. 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 Today she received 2 units of botox into the left thyroid arytenoid muscle. Patient tolerated this well and will let us know how she does. Depending on how she does with this injection, we may consider injection we may consider increasing or decreasing dosage in addition to alternating sides. Spasmodic dysphonia 11/05/2018 Assessment & Plan (11/05/2018 11:37 AM EDT): Patient had a presumptive diagnosis of mixed spasmodic dysphonia. Our exam today is more consistent with essential tremor with possibly some component of abductor spasmodic dysphonia. We will have the patient seen by movement disorder neurologist. Patient's already work with speech therapy. Will consider Botox injection if she does not respond to medical management. Tremor, essential 11/05/2018 Assessment & Plan (11/05/2018 11:37 AM EDT): Patient with a history of vocalizing with dystonia. In addition she has upper extremity tremors involving the hands.Videostrobe exam was performed today revealing evidence of laryngeal tremor and instability. At first patient was suspected to have spasmodic dysphonia when she was evaluated by an outside sub acute care nurse. 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 Our plan will be to have the patient be seen our movement disorder neurologist or similar specialist in the [facility] for work-up with her tremor. If need be we can consider administering Botox to her larynx if she does not respond to medical management. . Social History Tobacco Use Types Packs/Day Years Used Date Smoking Tobacco: Former Cigarettes 0.3 15 Smokeless Tobacco: Never Alcohol Use Standard Drinks/Week Comments No 0 (1 standard drink = 0.6 oz pur e alcohol) Comments No Sex and Gender Information Value Date Recorded Sex Assigned at Not on file Legal Sex Female 10:54 AM EDT Gender Identity Not on file Sexual Orientation Not on file Last Filed Vital Signs Vital Sign Reading Time Taken Comments Blood Pressure 164/77 04/22/2021 12:11 PM EDT Pulse 67 04/22/2021 12:11 PM EDT Temperature - - Respiratory Rate - - Oxygen Saturation - - Inhaled Oxygen Concentration - - Weight 68.9 kg (152 lb) 04/22/2021 12:11 PM EDT Height 162.6 cm (5' 4 ) 04/22/2021 12:11 PM EDT Body Mass Index 26.09 04/22/2021 12:11 PM EDT Plan of Treatment Health Maintenance Due Date Last Done Comments Bone Density Screening 1940 HIV Screening 1940 Medicare Annual Wellness (AWV) 1940 DTaP,Tdap,and Td Vaccines (1 - Tdap) 1959 Pneumococcal Vaccine, 50+ Ye ars (1 of 1 - PCV) 1991 Zoster Vaccines (1 of 2) 1991 COVID-19 Vaccine (1 - 2023-2 5 season) 2025 Influenza Vaccine (#1) 2025 HPV Vaccines Aged Out No longer eligi ble based on patient's age to complete this topic Hepatitis A Vaccines Aged Out No long er eligible based on patient's age to complete this topic Meningococcal Vaccine Aged Out No ashley remington eligible based on patient's age to complete this topic Insurance ANTH - OUT OF STATE MEDICARE PART A & B Care Teams Respiratory Practitioner Relationship Specialty Start Date End Date Luis Carrington [address] [address] PCP - General 10/31/18 Luis Carrington [address] [address] PCP - Insurance Payer PCP 06/05/23
--- OUTSIDE RECORDS SUMMARY | 2025-05-20 15:25 | XMS_ITS | Patient Health Record ---
Author Organization Luis Carrington III, MD Address [address] [place] [address] DR BARROSO [place] [address] Care Team Providers Care Routing Equipment Tender Name Role Phone Dr. Luis Carrington III Primary Care Provider Allergies Allergen (clinical drug ingredient) Drug/Non Drug Allergy documented on EMR Reaction Allergy Type Onset Date Status Dust Mites Unknown Allergy Active amoxicillin Amoxicillin Unknown Drug Allergy Act silvia Results Component Value Reference Range Notes MM tomosynthesis screening B I (Not yet reviewed by provider) Interpretation: Performing Lab: Notes/Report: [facility]'[address] [place] [id number] Mammography Report Signed Patient: Gretta Pang MR#: [id number] 1 : 1940 Acct:[id number] Age/Sex: 84 / F ADM Date: 05/20/25 Loc: HO.MAMMO Attending Dr: Luis Carrington MD Ordering Physician: Luis Carrington MD Results: 2Benign Date of Service: 05/20/25 Follow Up: 1 Year From [facility]a Mammogram Procedure(s): MM tomosynthesis screening BI Accession Number(s): [id number] cc: Luis Carrington MD Reason For Exam: SCREENING EXAMINATION: MM SCREENING DIGITAL BREAST TOMOSYNTHESIS, BILATERAL CLINICAL INFORMATION: Screening. Asymptomatic. History of right breast cancer 40 years ago post lumpectomy. COMPARISON: Mammography: Comparison is made with available priors TECHNIQUE: Digital breast mammography with tomosynthesis is performed in both the craniocaudal and mediolateral oblique views along with computer-aided detection (CAD). FINDINGS: There are scattered areas of fibroglandular density. Right post lumpectomy changes. There are no significant masses, abnormal calcifications, or other abnormalities. MM/MM tomosynthesis screening BI IMPRESSION: No mammographic evidence of malignancy. ASSESSMENT: BI-RADS Category 2: Benign RECOMMENDATION: Routine annual mammography screening. 1 year F/U This examination should not preclude the clinical evaluation of a suspicious palpable abnormality. This patient's information was entered into a reminder system with a target due date for their next mammogram. Electronically signed by: Adore Zarate DO 05/20/2025 01:13 PM EDT RP Dictated By: Adore Zarate DO Signed By: <Electronically signed by Adore Zarate DO in OV> 05/20/25 1313 DD/ 1212 TD/TT: 05/20/25 1233 Wire Coiler: [facility] [address] [place] [address] Mammography Report Signed Patient: Dang Pang MR#: [id number] 1 : 1940 Acct:[id number] Age/Sex: 84 / F ADM Date: 05/20/25 Loc: HO.MAMMO Attending Dr: Luis Carrington MD Ordering Physician: Luis Carrington MD Results: 2Benign Date of Service: Follow Up: 1 Year From Orig inal Mammogram Procedure(s): MM franc osynthesis screening BI Accession Number(s): [id number] cc: Luis Carrington MD Reason For Exam: SCREENING EXAMINATION: MM SCREENING DIGITAL BREAST TOMOSYNTHESIS, BILATERAL CLINICAL INFORMATION: Screening. Asymptoma tic. History of right breast cancer 40 years ago post lumpectomy. COMPARISON: Mammography: Compari son is made with available priors TECHNIQUE: Digital breast mammo graphy with tomosynthesis is performed in both the craniocaudal and med iolateral oblique views along with computer-aided detection (CAD). FINDINGS: There are scattered areas of fibroglandular density. Right post lumpectomy changes. There are no signifi cant masses, abnormal calcifications, or other abnormalities. M M/MM tomosynthesis screening BI IMPRESSION: No mammographic evid ence of malignancy. ASSESSMENT: BI-RADS Category 2: Benign RECOMMENDATION: Routine annual mammo graphy screening. 1 year F/U This examination huma uld not preclude the clinical evaluation of a suspicious palpable abnormality. This patient's infor mation was entered into a reminder system with a target due date for their next mammogram. 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 Moreno on 08/13/2024 @ 1:10pm Referral Priority Routine Referral Appointment Date 08/13/2024 Reason bilateral hearing lo ss evaluate and treatment hearing aides needed Diagnosis 1 Bilateral hearing lo ss, unspecified hearing loss type (H91.93) Referral Organization Luis Carrington III, MD Referring Provider First Name Luis Referring Provider Last Name Charissa Referring Provider Speciality Internal M edicine Referred Provider Speech Hearing [facility] Referred Provider Specialty Audiologists General Notes Amber Dimas CMA 03/24 09:44:06 AM >ref/progress note faxed to speech and hearing dept at the [facility] pt aware of this, Amber Dimas CMA 04/13/2025 03:15:46 PM > I called spoke to Kimberly in Speech and hearing dept at and they stated pt has appt on 06/25/2025 at 2:45 pm Referral Priority Routine Referral Appointment Date 06/25/2025 Medications Medication SIG (Take, Route, Frequency, Duration) [...] MOUTH EVERY DAY FOR 30 DAYS Active Immunizations Vaccine Route Administration Date Status Comme nts Influenza Unknown 06/11/2013 Administered Influenza Unknown 04/18/2017 Administered COVID PFIZER Unknown 07/22/2021 Administered COVID PFIZER Unknown 10/03/2020 Administered COVID PFIZER Unknown 09/11/2020 Administered COVID Pfizer Bivalent Unknown 04/18/2022 Administered PPV 23 Unknown 09/23/2021 Administered PCV13 Unknown 04/26/2016 Administered FLuzone HD PF Unknown 06/21/2023 Administered Social History Tobacco Use: Social History Observation [...] Problem Status W/U Status Risk Notes Problem Anxiety disorder (848361921) Anxiety disorder, unspecified (F41.9) Active confirmed After her next visit and appropriate therapy will be selected. Currently I have advised her to stop her medications Problem 7508405 Former smoker (Z87.891) Active confirmed She is highly motivated not to smoke. She feels well today and has no cough. We have a plan for prevention of relapse in times of stress and illness. Problem 71203072 Hyperlipidemia (E78.5) Active confirmed No blood work is available. Her lipids have been elevated in the past. We discussed this at length. She does not wish to take more medication at this time.The risks and benefits of statin medication were discussed with her at length. She declined a prescription. Problem 516474097 Overweight (E66.3) Active confirmed Her body mass index is 26.7. She has lost 4 pounds. We discussed diet and nutrition today. We made a weight loss plan. Problem 39112598 Hypertension (I10) Active confirmed Her blood pressure today is 138/72 and no change in her regimen was necessary. Problem 256176815 Breast cancer (C50.919) Active confirmed There is currently no sign of relapse or a new primary. Surveillance will continue. A CT scan of the brain has been ordered to rule out metastatic disease. In view of the worsening cerebellar ataxia Problem 94794145 Anxiety (F41.9) Active confirmed This has been a growing problem with her. She was given a trial of sertraline. Problem Hyperlipidemia (92625899) Other hyperlipidemia (E78.4) Active confirmed Her lipids are currently stable. Her weight is stable. We reviewed her diet today. 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 She was instructed to use a walker at all times and avoid dangerous situations. A CT scan of the brain is within normal limits for her age She has a neurology consultation coming up for follow-up of worsening ataxia. This appears to be a cerebellar ataxia. Problem 096151875 Osteopenia (M85.80) Active confirmed She will continue on current therapy and we will check her vitamin D. A bone density test has been ordered and is pending. Problem 77967433 Sciatica (M54.30) Active confirmed The back pain has improved significantly and is a minor complaint today. No change in her regimen was needed. Problem 10964329 Vitamin D deficiency (E55.9) Active confirmed She was continued on her vitamin D therapy. Problem Ataxia (13882537) Ataxia (R27.0) Active confirmed Problem 65150363 Bilateral hearing loss, unspecified hearing loss type (H91.93) Active confirmed Problem 612674259 Age-related incipient cataract of both eyes (H25.093) Active confirmed She may proce ed to cataract surgery. I have seen her and examined. Taken her history. The risk of surgery is small and benefits great. She is medically cleared for the procedure. 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 Problem Screening for malignant neoplasm of breast (277960944) Breast cancer screening by mammogram (Z12.31) Active confirmed We have scheduled her annual screening mammogram. 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 She was able to walk without of the was unsteady. This is a new problem. The database will be assembled. She will be referred to neurology and a CT scan of the brain will be done. Vital Signs Heart Rate 63 /min 03/23/2025 Temperature 98.8 degrees Fahrenheit 03/23/2025 Blood pressure diastolic 72 mm Hg 03/23/2025 Height 64 in 03/23/2025 Blood pressure systolic 138 mm Hg 03/23/2025 Weight 156 lbs 03/23/2025 BMI 26.77 kg/m2 03/23/2025 Encounters Encounter Location Date Provider Diagnosis Luis Carrington III, MD [address] [place] [address] [place] [address] 06/16/2024 Luis Carrington Hyperlipidemia E78.5 ; Breast cancer C50.919 ; Cerebellar ataxia G11.9 ; Osteopenia M85.80 ; Former smoker Z87.891 ; Hypertension I10 ; Overweight E66.3 and Spasmodic dysphonia J38.3 Luis Carrington III, MD [address] [place] [address] [place] [address] 07/18/2024 Luis Carrington Hyperlipidemia E78.5 ; Breast cancer C50.919 ; Former smoker Z87.891 ; Hypertension I10 ; Overweight E66.3 ; Osteopenia M85.80 ; Spasmodic dysphonia J38.3 and Other hyperlipidemia E78.4 Luis Carrington III, MD [address] [place] [address] [place] [address] 11/17/2024 Luis Carrington Hyperlipidemia E78.5 ; Hypertension I10 ; Vitamin D deficiency E55.9 ; Osteopenia M85.80 ; Former smoker Z87.891 ; Breast cancer C50.919 ; Overweight E66.3 and Spasmodic dysphonia J38.3 Luis Carrington III, MD [address] [place] [address] [place] [address] 03/23/2025 Luis Carrington Hyperlipidemia E78.5 ; Breast cancer C50.919 ; Hypertension I10 ; Vitamin D deficiency E55.9 ; Overweight E66.3 ; Screening mammogram for breast cancer Z12.31 ; Former smoker Z87.891 and Osteopenia M85.80 Luis Carrington III, MD [address] [place] [address] [place] [address] 06/10/2024 Luis Carrington Hyperlipidemia E78.5 Luis Carrington III, MD [address] [place] [address] [place] [address] 07/08/2024 Luis Carrington Hyperlipidemia E78.5 Luis Carrington III, MD [address] [place] [address] [place] [address] 07/11/2024 Luis Carrington III, MD [address] [place] [address] [place] [address] 12/26/2024 Luis Carrington Assessments Encounter Date Diagnosis (ICD Code) Assessment Notes Treat ment Notes Treatment Clinical Notes 06/16/2024 Hyperlipidemia (ICD-10 - E78.5) Her cholesterol is slightly high. We discussed this at length. She does not wish to take more medication at this time.The risks and benefits of statin medication were discussed with her at length. She declined a prescription. 06/16/2024 Breast cancer (ICD-10 - C50.919) There is currently no sign of relapse or a new primary. Surveillance will continue. A CT scan of the brain has been ordered to rule out metastatic disease. In view of the worsening cerebellar ataxia 07/18/2024 Hyperlipidemia (ICD-10 - E78.5) Her cholesterol [...] view of the worsening cerebellar ataxia 11/17/2024 Hyperlipidemia (ICD-10 - E78.5) No blood [...] No change in her regimen was needed. 03/23/2025 Hyperlipidemia (ICD-10 - E78.5) No blood work is available. Her lipids have been elevated in the past. We discussed this at length. She does not wish to take more medication at this time.The risks and benefits of statin medication were discussed with her at length. She declined a prescription. 03/23/2025 Breast cancer (ICD-10 - C50.919) There is currently no sign of relapse or a new primary. Surveillance will continue. A CT scan of the brain has been ordered to rule out metastatic disease. In view of the worsening cerebellar ataxia 06/10/2024 Hyperlipidemia (ICD-10 - E78.5) Comprehensive blood work including a fasting lipid profile has been ordered prior to her next visit. No change in her regimen was made today. 07/08/2024 Hyperlipidemia (ICD-10 - E78.5) Her cholesterol is slightly high. We discussed this at length. She does not wish to take more medication at this time.The risks and benefits of statin medication were discussed with her at length. She declined a prescription. 06/16/2024 Cerebellar ataxia (ICD-10 - G11.9) She needed a walker today to be safe. She was able to walk without of the was unsteady. This is a new problem. The database will be assembled. She will be referred to neurology and a CT scan of the brain will be done. 07/18/2024 Former smoker (ICD-10 - Z87.891) She is highly motivated not to smoke. She feels well today and has no cough. We have a plan for prevention of relapse in times of stress and illness. 11/17/2024 Vitamin D deficiency (ICD-10 - E55.9) She will be continued on her current supplement. 03/23/2025 Hypertension (ICD-10 - I10) Her blood pressure today is 138/72 and no change in her regimen was necessary. 06/16/2024 Osteopenia (ICD-10 - M85.80) She will continue on current therapy and we will check her vitamin D. A bone density test has been ordered and is pending. 07/18/2024 Hypertension (ICD-10 - I10) We discussed reducing her blood pressure by lifestyle modification including a low sodium diet and weight loss. Her medications were not changed. 11/17/2024 Osteopenia (ICD-10 - M85.80) She will continue on current therapy and we will check her vitamin D. A bone density test has been ordered and is pending. 03/23/2025 Vitamin D deficiency (ICD-10 - E55.9) She was continued on her vitamin D therapy. 06/16/2024 Former smoker (ICD-10 - Z87.891) She is highly motivated not to smoke. She feels well today and has no cough. We have a plan for prevention of relapse in times of stress and illness. 07/18/2024 Overweight (ICD-10 - E66.3) She remains slightly overweight. Her body mass index is 27. We discussed diet and nutrition today. I stressed the importance of stabilizing her weight at this level and possibly losing weight until her body mass index is in the normal range. 11/17/2024 Former smoker (ICD-10 - Z87.891) She is highly motivated not to smoke. She feels well today and has no cough. We have a plan for prevention of relapse in times of stress and illness. 03/23/2025 Overweight (ICD-10 - E66.3) Her body mass index is 26.7. She has lost 4 pounds. We discussed diet and nutrition today. We made a weight loss plan. 06/16/2024 Hypertension (ICD-10 - I10) We discussed reducing her blood pressure by lifestyle modification including a low sodium diet and weight loss. Her medications were not changed. 07/18/2024 Osteopenia (ICD-10 - M85.80) She will continue on current therapy and we will check her vitamin D. A bone density test has been ordered and is pending. 11/17/2024 Breast cancer (ICD-10 - C50.919) There is currently no sign of relapse or a new primary. Surveillance will continue. A CT scan of the brain has been ordered to rule out metastatic disease. In view of the worsening cerebellar ataxia 03/23/2025 Screening mammogram for breast cancer (ICD-10 - Z12.31) Her annual mammogram has been scheduled. 06/16/2024 Overweight (ICD-10 - E66.3) She remains slightly overweight. We discussed diet and nutrition today. I stressed the importance of stabilizing her weight at this level and possibly losing weight until her body mass index is in the normal range. 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 11/17/2024 Overweight (ICD-10 - E66.3) She remains slightly overweight. Her body mass index is 27. We discussed diet and nutrition today. I stressed the importance of stabilizing her weight at this level and possibly losing weight until her body mass index is in the normal range. 03/23/2025 Former smoker (ICD-10 - Z87.891) She is highly motivated not to smoke. She feels well today and has no cough. We have a plan for prevention of relapse in times of stress and illness. 06/16/2024 Spasmodic dysphonia (ICD-10 - J38.3) The dysphonia was present, but she was understandable and continues to work on her pronunciation. 07/18/2024 Other hyperlipidemia (ICD-10 - E78.4) Her lipids are currently stable. Her weight is stable. We reviewed her diet today. 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 03/23/2025 Osteopenia (ICD-10 - M85.80) She will continue on current therapy and we will check her vitamin D. A bone density test has been ordered and is pending. Plan Of Treatment Pending Test Test Name Order Date PROFILE, FASTING (COMPREHENSIVE METABOLI C) 08/14/2023 PROFILE, FASTING (COMPREHENSIVE METABOLI C) 03/23/2025 PROFILE, FASTING (COMPREHENSIVE METABOLI C) 01/21/2021 PROFILE, FASTING (COMPREHENSIVE METABOLI C) 10/11/2021 PROFILE, FASTING (COMPREHENSIVE METABOLI C) 11/17/2024 PROFILE, FASTING (COMPREHENSIVE METABOLI C) 01/16/2019 PROFILE, FASTING (COMPREHENSIVE METABOLI C) 11/09/2020 PROFILE, FASTING (COMPREHENSIVE METABOLI C) 07/03/2023 PROFILE, FASTING (COMPREHENSIVE METABOLI C) 05/03/2021 PROFILE, FASTING (COMPREHENSIVE METABOLI C) 07/18/2024 PROFILE, FASTING (COMPREHENSIVE METABOLI C) 05/16/2022 PROFILE, FASTING (COMPREHENSIVE METABOLI C) 04/10/2024 PROFILE, FASTING (COMPREHENSIVE METABOLI C) 08/07/2019 LIPID PANEL 08/07/2019 LIPID PANEL 01/21/2021 LIPID PANEL 10/11/2021 LIPID PANEL 01/16/2019 LIPID PANEL 11/09/2020 LIPID PANEL 05/03/2021 TSH (THYROID STIMULATING HORMONE) 2022 CBC w DIFF 05/03/2021 CBC w DIFF 03/23/2025 CBC w DIFF 08/07/2019 CBC w DIFF 11/17/2024 CBC w DIFF 01/21/2021 CBC w DIFF 10/11/2021 CBC w DIFF 01/16/2019 CBC w DIFF 11/09/2020 CBC w DIFF 07/03/2023 CBC w DIFF 05/16/2022 SED RATE (ESR) 04/10/2024 VITAMIN D 25-OH TOTAL 10/24/2017 CBC WITH AUTO DIFF 08/14/2023 CBC WITH AUTO DIFF 04/10/2024 CBC WITH AUTO DIFF 07/18/2024 Magnesium 07/03/2023 Lipid Panel 07/18/2024 Lipid Panel 05/16/2022 Lipid Panel 07/03/2023 Lipid Panel 08/14/2023 Lipid Panel 03/23/2025 Lipid Panel 04/10/2024 Lipid Panel 11/17/2024 Vitamin B12 07/03/2023 Vitamin B12 08/14/2023 Vitamin B1 08/14/2023 Vitamin D 25-OH Total 05/16/2022 Vitamin D 25-OH Total 03/23/2025 Vitamin D 25-OH Total 11/17/2024 Free T4 (Free Thyroxine) 07/03/2023 MM tomosynthesis screening BI 03/23/2025 MM tomosynthesis screening BI 05/20/2025 Hemoglobin A1c 07/03/2023 Next Appt Details Provider Name:Luis Carrington , 07/22/2025 10:00:00 AM, [address] [place] [address] , [address], [place], [address], Insurance Providers Payer Name Payer Address Payer Phone Subscriber Number Group Number Insured Name Patient Relationship to Insured Coverage Start Date Coverage End Date MEDICARE NGS [address] [place] [address] [phone] [id number] Gretta Pang Self - patient is the insured [facility] [address] [place], [place] [id number] Gretta Pang Self - patient is the insured Medical (General) History Medical History History ICD Code 1985 invasive right breast cancer:RT/[facility] /[facility]/lumpectomy hypertension hyperlipidemia anxiety osteopenia 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 Right knee arthroplasty Surgical History Surgery Date(Month/Year) No history right knee arthroplasty 07/21/2020 [facility] 07/2020 right cataract 06/2019 left cataract 05/2019 lumpectomy right breast 1986 Hospitalization History Reason Date(Month/Year) No history
== END 2025-05-20 12:10 | disposition home or self-care (01) ==
LOC: HO.MAMMO 12:09
PROVIDERS: Visit Provider Internal Medicine Medical Oncology
DX: Z12.31 Encounter for screening mammogram for malignant neoplasm of breast (principal)
CPT/HCPCS: 77063; 77067

== ENCOUNTER → 2025-05-20 12:15 | Outpatient (BNV) | payer MEDICARE, BC, SELFPAY | PROVIDERS: Visit Provider Internal Medicine | DX: Z12.31 Encounter for screening mammogram for malignant neoplasm of breast (principal) | CPT/HCPCS: 77063; 77067 ==

== ENCOUNTER 2025-07-17 13:15 | Emergency (ER) | payer MEDICARE, BC, SELFPAY ==
--- OUTSIDE RECORDS SUMMARY | 2025-06-08 12:00 | XMS_ITS ---
Author Organization Luis Carrington III, MD Address [address] [place] [address] [place] [address] Care Team Providers Care Arranging Funeral Director Name Role Phone Dr. Luis Carrington III Primary Care Provider [phone] Allergies Allergen (clinical drug ingredient) Drug/Non Drug Allergy documented on EMR Reaction Allergy Type Onset Date Status Dust Mites Unknown Allergy Active amoxicillin Amoxicillin Unknown Drug Allergy Act silvia REASON FOR VISIT New Concern Medications Medication SIG (Take, Route, Frequency, Duration) Notes Start Date End Date Status amLODIPine Besylate 10 MG 1 tablet Orall y Once a day Active LORazepam 0.5 MG 1 tablet Orally Once a day 04/11/2024 Active Propranolol HCl 80 MG TAKE 1 TABLET BY M OUTH TWICE A DAY Active Tylenol 325 MG 1 tablet as needed O rally every 4 hrs Active Vitamin D 25 MCG (1000 UT) 1 tablet Oral ly Once a day 12/29/2022 Active Citalopram Hydrobromide 10 MG TAKE 1 [...] Additional Findings: Tobacco Non-User Ex-cigaret te smoker Encounters Encounter Location Date Provider Diagnosis Luis Carrington III, MD [address] [place] [address] [place] [address] 06/08/2025 Luis Carrington Hyperlipidemia E78.5 Assessments Encounter Date Diagnosis (ICD Code) Assessment Notes Treat ment Notes Treatment Clinical Notes 06/08/2025 Hyperlipidemia (ICD-10 - E78.5) No blood work is available. Her lipids have been elevated in the past. We discussed this at length. She does not wish to take more medication at this time.The risks and benefits of statin medication were discussed with her at length. She declined a prescription. Plan Of Treatment Medication Medication Name Sig Start Date Stop Date Notes amLODIPine Besylate 10 MG 1 tablet Orally Once a day LORazepam 0.5 MG 1 tablet Orally Once a day 04/11/2024 Propranolol HCl 80 MG TAKE 1 TABLET BY M OUTH TWICE A DAY Tylenol 325 MG 1 tablet as needed O rally every 4 hrs Vitamin D 25 MCG (1000 UT) 1 tablet Orally Once a day 12/05 Citalopram Hydrobromide 10 MG TAKE 1 TAB LET BY MOUTH EVERY DAY FOR 30 DAYS Next Appt Details Provider Name:Luis Carrington , 07/22/2025 10:00:00 AM, [address] [place] [address] , [address], [place], [address], Progress Notes * Tammi PANGAryanOB:1940 (84 yo F)Acc No.[id number]:06/08/2025 Progress Notes Patient: Gretta QUINTANILLA Provider: Betty Carrington MD :1940 A ge:84 Y S ex:Female Date:06/08/2025 Address:[address] [place], [place] [address] [id number] Subjective: * Chief Complaints: * 1 . New Concern. * HPI: C OVID-19 Screening: Questions H ave you [...] of breath d enies. G astrointestinal: Constipation d enies. D ecreased appetite d enies.?Diarrhea d enies. H eartburn d enies. N ausea d enies. R ectal bleeding?denies. V omiting d enies. H ematology: bruising [...] Depressed mood d enies. * Medical History: invasive right breast cancer:RT/CMF/[facility]/lumpectomy, Hypertension, Hyperlipidemia, Anxiety, Osteopenia, Sciatica, Spasmodic dysphonia, April 2020. Right knee arthroplasty. * Surgical History: l umpectomy right breast 1985, left cataract 05/2019, right cataract 06/2019, right knee arthroplasty 07/21/2020 [facility] 07/2020, No history . * Hospitalization/Major Diagno stic Procedure: N o history . * Family History: F ather: 85 yrs, [...] smoker { 'Smoking': 'No'}. * Medications: T aking Citalopram Hydrobromide 10 MG Tablet TAKE 1 TABLET BY MOUTH EVERY DAY FOR 30 DAYS , Taking amLODIPine Besylate 10 MG Tablet 1 tablet Orally Once a day , Taking LORazepam 0.5 MG Tablet 1 tablet Orally Once a day , Taking Tylenol 325 MG Tablet 1 tablet as needed Orally every 4 hrs , Taking Vitamin D 25 MCG (1000 UT) Tablet 1 tablet Orally Once a day , Taking Propranolol HCl 80 MG Tablet TAKE 1 TABLET BY MOUTH TWICE A DAY , Medication List reviewed and reconciled with the patient * Allergies: D ust Mites: Allergy, Amoxicillin. Objective: * Vitals: * Examination: G eneral Examination: GENERAL APPEARANCE: p leasant, well nourished, well developed, in no acute distress, calm and relaxed. HEAD: a traumatic, normocephalic. EYES: e caryl, [...] to auscultation . BREASTS: no masses palpable bilaterally. ABDOMEN: b owel sounds normal, no ascites, no organomegaly, no mass. RECTAL EXAM: n ot examined. MUSCULOSKELETAL: e xtremities unremarkable, no clubbing, cyanosis or edema. PERIPHERAL PULSES: n ormal. NEUROLOGIC: a lert and oriented, cranial nerves 2-12 grossly intact, deep tendon reflexes 2+ symmetrical, motor strength normal upper and lower extremities, sensory exam intact. PSYCH: a lert, oriented. Assessment: * Assessment: 1. H yperlipidemia - E78.5 N otes :No blood work is available. Her lipids have been elevated in the past. We discussed this at length. She does not wish to take more medication at this time.The risks and benefits of statin medication were discussed with her at length. She declined a prescription. Plan: * Treatment: 2. O thers Continue Citalopram Hydrobromide Tablet, 10 MG, TAKE 1 TABLET BY MOUTH EVERY DAY FOR 30 DAYS; C ontinue LORazepam Tablet, 0.5 MG, 1 tablet, Orally, Once a day. * Images: * The named appointment provid er may or may not be the originator of this progress note, and it is not deemed complete until electronically signed by the appointment provider. Sign off status: Pending * Provider: Betty Carrington MD Date: 08/08/2024 Generated for Shaneli will/Radha/Ruddysmitting on: 09/17/2024 07:19 PM EST History and Physical Notes * HPI (History of Present Illness) Category Sub-Category Detail Notes COVID-19 Screening Questions Have you had any new onset fever, chills, cough, congestion, sore throat, shortness of breath, muscle aches?: No Examination Category Sub-Category Detail Notes General Examination GENERAL APPEARANCE: pleasant , well nourished, well developed, in no acute distress, calm and relaxed HEAD: atraumatic, normocep halic EYES: eomi, perrla, [...] normal upper and lower extremities, sensory exam intact SKIN: no suspicious lesion s, anicteric PERIPHERAL PULSES: normal BREASTS: no masses palpable b ilaterally MUSCULOSKELETAL: extremities unremark able, no clubbing, cyanosis or edema LYMPH NODES: no enlarged lymph no jackson,spleen normal RECTAL EXAM: not examined PSYCH: alert, oriented ORAL CAVITY: normal, unremarkable
--- OUTSIDE RECORDS SUMMARY | 2025-06-11 05:58 | XMS_ITS ---
Author Organization Luis Carrington III, MD Address [address] [facility] [place] [address] Care Team Providers Care Coding File Clerk Name Role Phone Dr. Luis Carrington III Primary Care Provider REASON FOR VISIT message Social History Sex Assigned At : Social History Observation Description Sex Assigned At Female Encounters Encounter Location Date Provider Diagnosis Luis Carrington III, MD [address] [place] [address] [place] [address] 06/11/2025 Luis Carrington Plan Of Treatment Next Appt Details Provider Name:Luis Carrington , 07/22/2025 10:00:00 AM, [address] [place] [address] [place], [address], Progress Notes * Jackie PANGOB:1940 (84 yo F)Acc No.[id number]:06/11/2025 Patient: Mariah Gretta RASMUSSEN :1940 A ge:84 Y S ex:Female Address:[address] [place] [address] * true * Date: Generated for Printi ng/Faxing/eTransmitting on: 09/17/2024 07:19 PM EST
--- OUTSIDE RECORDS SUMMARY | 2025-06-17 09:37 | XMS_ITS ---
Author Organization Luis Carrington III, MD Address [address] [facility] [place] [address] Care Team Providers Care Strip Mill Operator Name Role Phone Dr. Luis Carrington III Primary Care Provider REASON FOR VISIT Verbal PT Orders Social History Sex Assigned At : Social History Observation Description Sex Assigned At Female Encounters Encounter Location Date Provider Diagnosis Luis Carrington III, MD [address] [place] [address] [place] [address] 06/17/2025 Luis Carrington Plan Of Treatment Next Appt Details Provider Name:Luis Carrington , 07/22/2025 10:00:00 AM, [address] [place] [address] [place], [address], Progress Notes * Jackie PANGOB:1940 (84 yo F)Acc No.[id number]:06/17/2025 Patient: Mariah Gretta RASMUSSEN :1940 A ge:84 Y S ex:Female Address:[address] [place] [address] * true * Date: Generated for Printi ng/Faxing/eTransmitting on: 1 09/17/2024 07:19 PM EST
--- OUTSIDE RECORDS SUMMARY | 2025-06-18 09:02 | XMS_ITS ---
Author Organization Luis Carrington III, MD Address [address] [facility] [place] [address] Care Team Providers Care Hide Washer Name Role Phone Dr. Luis Carrington III Primary Care Provider REASON FOR VISIT Message Social History Sex Assigned At : Social History Observation Description Sex Assigned At Female Encounters Encounter Location Date Provider Diagnosis Luis Carrington III, MD [address] [place] [address] [place] [address] 06/18/2025 Luis Carrington Plan Of Treatment Next Appt Details Provider Name:Luis Carrington , 07/22/2025 10:00:00 AM, [address] [place] [address] [place], [address], Progress Notes * Jackie PANGOB:1940 (84 yo F)Acc No.[id number]:06/18/2025 Patient: Mariah Gretta RASMUSSEN :1940 A ge:84 Y S ex:Female Address:[address] [place] [address] * true * Date: Generated for Printi ng/Faxing/eTransmitting on: 09/17/2024 07:20 PM EST
--- OUTSIDE RECORDS SUMMARY | 2025-06-19 09:44 | XMS_ITS ---
Author Organization Luis Carrington III, MD Address [address] [facility] [place] [address] Care Team Providers Care Peer Specialist Name Role Phone Dr. Luis Carrington III Primary Care Provider REASON FOR VISIT Verbal Order Social History Sex Assigned At : Social History Observation Description Sex Assigned At Female Encounters Encounter Location Date Provider Diagnosis Luis Carrington III, MD [address] [place] [address] [place] [address] 06/19/2025 Luis Carrington Plan Of Treatment Next Appt Details Provider Name:Luis Carrington , 07/22/2025 10:00:00 AM, [address] [place] [address] [place], [address], Progress Notes * Jackie PANGOB:1940 (84 yo F)Acc No.[id number]:06/19/2025 Patient: Mariah Gretta RASMUSSEN :1940 A ge:84 Y S ex:Female Address:[address] [place] [address] * true * Date: Generated for Printi ng/Faxing/eTransmitting on: 1 09/17/2024 07:21 PM EST
--- OUTSIDE RECORDS SUMMARY | 2025-06-23 04:52 | XMS_ITS ---
Author Organization Luis Carrington III, MD Address [address] [place] [address] [place] [address] Care Team Providers Care Yarn Dumper Name Role Phone Dr. Luis Carrington III Primary Care Provider [phone] REASON FOR VISIT Message Social History Sex Assigned At : Social History Observation Description Sex Assigned At Female Encounters Encounter Location Date Provider Diagnosis Luis Carrington III, MD [address] [place] [address] [place] [address] 06/23/2025 Luis Carrington Hyperlipidemia E78.5 ; Hypertension I10 ; Spasmodic dysphonia J38.3 ; Anxiety F41.9 and Syncope, unspecified syncope type R55 Assessments Encounter Date Diagnosis (ICD Code) Assessment Notes Treat ment Notes Treatment Clinical Notes 06/23/2025 Hyperlipidemia (ICD-10 - E78.5) 06/23/2025 Hypertension (ICD-10 - I10) 06/23/2025 Spasmodic dysphonia (ICD-10 - J38.3) 06/23/2025 Anxiety (ICD-10 - F41.9) 06/23/2025 Syncope, unspecified syncope type (ICD-10 - R55) Plan Of Treatment Pending Test Test Name Order Date PROFILE, FASTING (COMPREHENSIVE METABOLI C) 06/23/2025 CBC w DIFF 06/23/2025 Lipid Panel 06/23/2025 Hemoglobin A1c 06/23/2025 Next Appt Details Provider Name:Luis Carrington , 07/22/2025 10:00:00 AM, [address] [place] [address] [address], [place], [address], Progress Notes * Jackie PANGOB:1940 (84 yo F)Acc No.[id number]:06/23/2025 Patient: Gretta QUINTANILLA :1940 A ge:84 Y S ex:Female Address:[address] [place] [address] Subjective: * Chief Complaints: * M essage * Medical History: * Surgical History: * Hospitalization/Major Diagno stic Procedure: * Medications: Objective: * Vitals: * Physical Examination: Assessment: * Assessment: 1. H yperlipidemia - E78.5 2 . H ypertension - I10 3 . S pasmodic dysphonia - J38.3 4 . A nxiety - F41.9 5 . S yncope, unspecified syncope type - R55 Plan: * Treatment: 2. H ypertension L AB: PROFILE, FASTING (COMPREHENSIVE METABOLIC) L AB: CBC w DIFF L AB: Lipid Panel L AB: Hemoglobin A1c 3. S pasmodic dysphonia L AB: PROFILE, FASTING (COMPREHENSIVE METABOLIC) L AB: CBC w DIFF L AB: Lipid Panel L AB: Hemoglobin A1c 4. A nxiety L AB: PROFILE, FASTING (COMPREHENSIVE METABOLIC) L AB: CBC w DIFF L AB: Lipid Panel L AB: Hemoglobin A1c 5. S yncope, unspecified syncope type L AB: PROFILE, FASTING (COMPREHENSIVE METABOLIC) L AB: CBC w DIFF L AB: Lipid Panel L AB: Hemoglobin A1c * Procedure Codes: * true * Date: Generated for Lisa solis/Radha/eTransmitting on: 1 09/17/2024 07:21 PM EST
--- OUTSIDE RECORDS SUMMARY | 2025-06-24 10:09 | XMS_ITS ---
Author Organization Luis Carrington III, MD Address [address] [place] [address] Care Team Providers Care Right Of Way Man Name Role Phone Dr. Luis Carrington III Primary Care Provider REASON FOR VISIT Cancel Speech Therapy Social History Sex Assigned At : Social History Observation Description Sex Assigned At Female Encounters Encounter Location Date Provider Diagnosis Luis Carrington III, MD [address] [place] [address] [place] [address] 06/24/2025 Luis Carrington Plan Of Treatment Next Appt Details Provider Name:Luis Carrington , 07/22/2025 10:00:00 AM, [address] [place] [address] [place], [address], Progress Notes * Jackie PANGOB:1940 (84 yo F)Acc No.[id number]:06/24/2025 Patient: Mariah Gretta RASMUSSEN :1940 A ge:84 Y S ex:Female Address:[address] [place] [address] * true * Date: Generated for Printi ng/Faxing/eTransmitting on: 1 09/17/2024 07:21 PM EST
--- OUTSIDE RECORDS SUMMARY | 2025-06-30 08:41 | XMS_ITS ---
Author Organization Luis Carrington III, MD Address [address] [facility] [place] [address] Care Team Providers Care Louver Door Assembler Name Role Phone Dr. Luis Carrington III Primary Care Provider [phone] REASON FOR VISIT Rx Request Social History Sex Assigned At : Social History Observation Description Sex Assigned At Female Encounters Encounter Location Date Provider Diagnosis Luis Carrington III, MD [address] [place] [address] [place] [address] 06/30/2025 Luis Carrington Plan Of Treatment Next Appt Details Provider Name:Lusi Carrington , 07/22/2025 10:00:00 AM, [address] [place] [address] [place], [address], Progress Notes * Jackie PANGOB:1940 (84 yo F)Acc No.[id number]:06/30/2025 Patient: aMriah Gretta RASMUSSEN :1940 A ge:84 Y S ex:Female Address:[address] [place] [address] * true * Date: Generated for Printi ng/Faxing/eTransmitting on: 09/17/2024 07:20 PM EST
--- OUTSIDE RECORDS SUMMARY | 2025-07-01 01:54 | XMS_ITS ---
Author Organization Luis Carrington III, MD Address [address] [facility] [place] [address] Care Team Providers Care Sofa Inspector Name Role Phone Dr. Luis Carrington III Primary Care Provider Medications Medication SIG (Take, Route, Fr equency, Duration) Notes Start Date End Date Status LORazepam 0.5 MG 1 tablet at bedtime Orally Once a day for 28 days 07/01/2025 Active Social History Sex Assigned At : Social History Observation Description Sex Assigned At Female Encounters Encounter Location Date Provider Diagnosis Luis Carrington III, MD [address] [place] [address] [place] [address] 07/01/2025 Luis Carrington Plan Of Treatment Medication Medication Name Sig Start Date Stop Date Notes LORazepam 0.5 MG 1 tablet at bedtime Orally Once a day for 28 days 07/01/2025 Next Appt Details Provider Name:Luis Carrington , 07/22/2025 10:00:00 AM, [address] [place] [address] [place], [address], Progress Notes * Alberto PANG:1940 (84 yo F)Acc No.[id number]:07/01/2025 Patient: Gretta QUINTANILLA :1940 A ge:84 Y S ex:Female Address:[address] [place] [address], [place] [address] * Refills Start LORazepam Tablet, 0.5 MG, Orally, 28 Tablet, 1 tablet at bedtime, Once a day, 28 days, Refills=1 * true * Date: Generated for Lisa solis/Radha/Devaughn on: 1 09/17/2024 07:19 PM EST
[2025-07-17] VITALS (7 sets, daily range): BP systolic 119–141; BP diastolic 54–68; PULSE 65–70; RESP 16–20; TEMP 36.4–36.9; O2SAT 92–97; BMI 27.1
--- NOTE | ~2025-07-17 | CT_ITS ---
EXAMINATION: CT HEAD WITHOUT CONTRAST CLINICAL INFORMATION: Falls. 84-year-old female. COMPARISON: 09/19/2023. TECHNIQUE: Contiguous axial imaging was performed from the skull base to vertex without intravenous administration of contrast. This CT examination was performed using dose optimization techniques as appropriate, variously including the following: *Automated exposure control *Adjustment of mA and/or kV according to patient size (this includes techniques or standardized protocols for targeted exams where dose is matched to indication/reason for exam; i.e. extremities or head) *Use of iterative reconstruction technique FINDINGS: There is no evidence of intracranial hemorrhage or extra-axial fluid collection. There is no mass effect, or edema. No CT evidence of acute territorial infarct. Ventricles, sulci, and cisterns are normal in size and configuration for patient age. No hydrocephalus. No midline shift. Negative hyperdense MCA sign. Negative insular ribbon sign. Patchy periventricular and deep white matter hypoattenuation is consistent with moderate small vessel ischemic changes. 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 Normal pituitary. Mild atheromatous calcification of the bilateral carotid siphons and V4 segments vertebral arteries bilaterally. Globes and orbital contents image normally. There are bilateral lens replacements. There are Ciliary body calcifications. No extracranial soft tissue abnormalities. The paranasal sinuses, mastoid air cells, and tympanic cavities are normally aerated. No suspicious bony abnormalities. There are no acute fractures evident. CT/CT head/brain wo IV con IMPRESSION: No acute intracranial abnormality. No acute fracture evident. Electronically signed by: Tim Hightower MD 07/17/2025 03:37 PM [facility]
--- NOTE | ~2025-07-17 | CT_ITS ---
EXAMINATION: CT CERVICAL SPINE WITHOUT CONTRAST CLINICAL INFORMATION: Trauma, fall COMPARISON: None available. TECHNIQUE: Axial imaging was performed from the base of the skull through T2 without IV contrast. Coronal and sagittal reformatted images were generated from the original axial data set. ALARA: The examination used one or more of the following radiation dose reduction techniques: Automated exposure control, iterative reconstruction, and/or adjustment of mA and/or KV. FINDINGS: There is 10 degrees dextroscoliosis. Moderate to severe degenerative changes are most advanced at C3-4 and C4-5 There is nonsegmentation of the facets on the left between C4-C6. There is mild to moderate facet arthropathy otherwise. No fractures are identified. Soft tissues are unremarkable. CT/CT cervical spine wo IV con IMPRESSION: No acute bony abnormality. Multilevel degenerative disc disease and facet osteoarthritis with nonsegmentation of the facets on the left between C4-C6. Electronically signed by: Usama Guerra MD 07/17/2025 03:37 PM [facility]
--- NOTE | ~2025-07-17 | XR_ITS ---
CLINICAL HISTORY: weakness, falls 2 view chest x-ray Comparison: None provided Findings: Heart size is top-normal. Atherosclerotic vascular disease. Low lung volumes. Bilateral interstitial prominence. Mild left basilar subsegmental atelectasis/scarring. No consolidation, pleural effusion or pneumothorax. Previous right mastectomy with right axillary surgical clips. No acute fracture. Nonacute fracture of right humeral neck. IMPRESSION: 1. Bilateral interstitial prominence could be acute or chronic. 2. Mild left basilar atelectasis/scarring. 3. Additional nonacute findings as described. This document has been electronically signed by: Justine Choudhary MD on 07/17/2025 18:23:48
--- OUTSIDE RECORDS SUMMARY | 2025-07-17 08:23 | XMS_ITS ---
Author Organization Luis Carrington III, MD Address [address] [facility] [place] [address] Care Team Providers Care Geologic Technician Name Role Phone Dr. Luis Carrington III Primary Care Provider REASON FOR VISIT FYI Social History Sex Assigned At : Social History Observation Description Sex Assigned At Female Encounters Encounter Location Date Provider Diagnosis Luis Carrington III, MD [address] [place] [address] [place] [address] 07/17/2025 Luis Carrington Plan Of Treatment Next Appt Details Provider Name:Luis Carrington , 07/22/2025 10:00:00 AM, [address] [place] [address] [place], [address], Progress Notes * Jackie PANGOB:1940 (84 yo F)Acc No.[id number]:07/17/2025 Patient: Mariah Gretta RASMUSSEN :1940 A ge:84 Y S ex:Female Address:[address] [place] [address] * * Date:
--- NOTE | 2025-07-17 13:34 | ED.FALL ---
HPI - Fall General Chief Complaint: Fall Stated Complaint: FALL WITH HEADSTRIKE Time Seen by Provider: 07/17/25 13:17 Source: patient and EMS Mode of arrival: EMS Limitations: no limitations History of Present Illness ED Provider: BRANDEN MORAES Narrative: 84-year-old female with past medical history of autoimmune cerebellar degeneration, difficulty walking, movement disorder, sciatica, here with complaint of multiple falls in the last 24 hours. Patient lives home alone, uses a walker. She has problems with balance. She does have home PT however she does not feel she is making significant progress. Due to the falls, patient is unsure as if she can care for herself at home. She denies any LOC. No prodromal symptoms. No head or neck pain. No urinary symptoms. No anticoagulants. Related Data Home Medications ?Medication ?Instructions ?Recorded ?Confirmed amlodipine 10 mg tablet 10 mg PO DAILY 07/12/22 07/18/25 propranolol 80 mg tablet 80 mg PO BID 07/12/22 07/18/25 cholecalciferol (vitamin D3) 25 25 mcg PO DAILY 07/18/25 07/18/25 mcg (1,000 unit) tablet lorazepam 0.5 mg tablet 0.5 mg PO BEDTIME PRN Sleep 07/18/25 07/18/25 Previous Rx's ?Medication ?Instructions ?Recorded walker #1 ea 10/13/22 Allergies Allergy/AdvReac Type Severity Reaction Status Date / Time No Known Allergies Allergy Verified 07/17/25 13:27 Review of Systems Review of Systems: Yes all other systems are reviewed and are negative Constitutional: Constitutional: Denies chills Cardiovascular: Cardiovascular: Denies chest pain Respiratory: Respiratory: Denies cough Gastrointestinal: Gastrointestinal: Denies vomiting [facility] Past Medical History Medical History Depression Movement disorder Difficulty balancing Tremor Surgical History H/O lumpectomy Knee joint replacement by other means Family History Family History Father Cirrhosis of liver Social History Social History Alcohol intake: never Patient Tobacco Use Status: Never used Tobacco Smoked in Last 30 Days: No Use of substances other than those prescribed or required for medical reasons: No Advance Directives: Yes Advance Directives Information Provided: No Advance Directives on File: No Do you have a plan to hurt others: No Plan Physical Exam Vital Signs: Vital Signs: Last Vital Signs Temp 98.6 F 07/20/25 17:42 Pulse 70 07/20/25 17:42 Resp 16 07/20/25 17:42 BP 121/62 07/20/25 17:42 Pulse Ox 95 07/20/25 17:42 O2 Del Method Room Air 07/20/25 17:42 BMI result Body Mass Index 27.1 Appearance: Alert. Oriented X3. No acute distress. Eyes: Pupils equal, round and reactive to light. ENT: Pharynx normal. no wayne sign or raccoon sign Neck: Normal inspection. Neck supple. CVS: Normal heart rate and rhythm. Pulses normal. Respiratory: No respiratory distress. Breath sounds normal. Abdomen: Soft and nontender. Skin: Skin warm and dry. Normal skin color. Normal skin turgor. Extremities: No lower extremity edema. No calf ttp Neuro: Oriented X 3. No motor deficit. No sensory deficit. she has a stuttering slow speech Course Course Course Narrative: 3:23 PM 07/17/2025 (BRANDEN SAGE): I spoke to the family she is not following the regimen at home they state she is absolutely a safety risk. At this time I am going to medically clear her and refer her to PT/ case management signed out to Chiquis HENRY pending labs 419pm July 17, 2025, 4:20 PM Received signout in stable condition with labs and UA pending. CT of head and cervical spine unremarkable. Discussion with patient and daughter at the bedside, confirms patient is having difficulty at home performing ADLs, especially with ambulation. Amenable to PT, STR or other. PT eval and case management assessment pending. Patient is hemodynamically stable and in no acute distress. No pain at this time. LS clear throughout and hear RRR. July 17, 2025, 9:00 p.m. patient resting comfortably at this time. UA demonstrates leuks and some white blood cells but no bacteria or nitrites. Patient is asymptomatic. Hold on any treatment at this time Remainder of labs within normal ranges. Chest x-ray without any acute findings. Time: 01:26 Date: 07/18/25 Provider: ELAINE Braxton Patient in physician observation for case management needs. No acute events reported overnight.? No current issues or complaints. VS stable. Patient is pending placement at facility/pending PT/CM eval. Will continue to monitor. Time: 1052 Date: 07/18/25 Provider: Jodi Piña APRN Patient in physician observation for case management needs. No acute events reported overnight.? No current issues or complaints. VS stable. Patient is pending placement at facility/pending PT/CM eval. Will continue to monitor. 07/19/25 ELAINE Padilla Physician observation continued. Uneventful night. Vital signs stable. No complaints from nursing overnight. Med reconciliation reviewed and done. Pending disposition. Will continue to monitor. Time: 18:40 Date: 07/20/25 ERNST Ayers Physician observation continued. No overnight complaints from nursing. VSS. Patient is discharging to [facility] BLS at 6pm. 07/20/25 physician observation ended at 18:00. Patient is being transferred to inpatient rehab. BRANDEN Medications Administered Discontinued Medications Generic Name Dose Route Start Last Admin Trade Name Freq PRN Reason Stop Dose Admin Acetaminophen 650 mg 07/17/25 15:49 07/20/25 07:44 Acetaminophen 325 Mg Tablet PO 650 mg Q6H PRN Administration Pain, Mild 1-3,fever,headache Amlodipine Besylate 10 mg 07/18/25 09:00 07/20/25 08:33 Amlodipine Besylate 10 Mg Tablet PO 10 mg DAILY RICHARD Administration Protocol Propranolol HCl 80 mg 07/17/25 21:00 07/20/25 07:43 Propranolol Hcl 40 Mg Tablet PO 80 mg BID RICHARD Administration Protocol Vitamin D 25 mcg 07/18/25 09:00 07/20/25 07:43 Cholecalciferol (Vitamin D3) 25 Mcg Tablet PO 25 mcg DAILY RICHARD Administration Medical Decision Making Medical Decision Making MDM Narrative: 84-year-old female with past medical history of autoimmune cerebellar degeneration, difficulty walking, movement disorder, sciatica, here with complaint of falls x2 in 24 hours. She states she uses a walker at home she states this is a chronic issue. She has no preceding symptoms of his chest pain, shortness of breath, dizziness. She states other than the fall and a headache she has no other symptoms. She is not on any blood thinners. we will obtain CT head, C-spine, and refer to PT/ case management if she does not feel safe to go home Differential Diagnosis Differential Diagnoses: The differential diagnosis associated with the presentation includes Strain, sprain, closed-head injury, intracranial he Admission/Observation Consideration of admission/observation: Escalation of care including admission/observation considered we will discuss if she feels the need to go to short-term rehab after workup Consult Healthcare Provider Management of the patient was discussed with: Supervisor [place] Lab Data 07/17/25 16:32 07/17/25 16:32 Labs: Lab Results 07/17/25 Range/Units 16:32 WBC 12.7 H (4.8-10.8) X10*3/uL RBC 4.69 (4.20-5.50) X10*6/uL Hgb 14.0 (12.0-16.0) g/dl Hct 42.0 (37.0-47.0) % MCV 89.6 (80.0-98.0) fL MCH 29.9 (27.0-33.0) pg MCHC 33.3 (31.0-35.0) g/dl RDW 13.2 (11.0-16.0) % Plt Count 259 (160-400) X10*3/uL MPV 10.8 (9.4-12.3) fL Immature Gran % (Auto) 0.5 H (0.0-0.4) % Neut % (Auto) 72.7 (45-73) % Lymph % (Auto) 16.1 L (20-40) % Garrard % (Auto) 8.9 (2-11) % Eos % (Auto) 1.5 (0-4) % Baso % (Auto) 0.3 (0-2) % Lymph # (Auto) 2.1 (1.2-4.9) X10*3/uL Garrard # (Auto) 1.1 (0.1-1.2) X10*3/uL Eos # (Auto) 0.2 (0.0-0.4) X10*3/uL Baso # (Auto) 0.0 (0.0-0.2) X10*3/uL Abs Immat Gran (auto) 0.06 H (0.00-0.03) X10*3/uL Absolute Neuts (auto) 9.2 H (2.0-8.3) x10*3/uL Absolute Nucleated RBC 0.000 (0.0-0.012) X10*3/uL Nucleated RBC % (auto) 0.0 (0.0-0.2) /100WBC Sodium 140 (135-145) mmol/L Potassium 3.6 (3.3-5.1) mmol/L Chloride 105 (96-108) mmol/L Carbon Dioxide 25 (22-29) mmol/L Anion Gap 14 (12-20) BUN 23 H (9-16) mg/dL Creatinine 0.77 (0.5-1.4) mg/dL Estim Creat Clear Calc 53.6 Estimated GFR > 60 Random Glucose 123 H (60-115) mg/dL Calcium 9.5 (8.4-10.2) mg/dL Urine Color Yellow Urine Appearance Clear Urine pH 6.0 (5.0-9.0) Ur Specific [place] 1.015 (1.005-1.025) Urine Protein Negative (Neg-Trace) mg/dL Urine Glucose (UA) Negative (Negative) mg/dL Urine Ketones Negative (Negative) mg/dL Urine Blood Negative (Negative) Urine Nitrite Negative (Negative) Ur Leukocyte Esterase Moderate (2+) H (Negative) Urine RBC 0-2 (0-2) /HPF Urine WBC 11-20 H (0-5) /HPF Ur Squamous Epith Cells 0-2 (0-2) /HPF Urine Bacteria None Seen (None Seen) Hyaline Casts 0-2 (0-2) /LPF Independent Interpretation I performed an independent interpretation of an: CT Scan (no acute trauma) Radiology Impression Discussion of test interpretation with radiology: I have reviewed the radiologist's reading. Independent Historian Clinical information obtained from an independent historian. History obtained from or confirmed by: EMS External Record Review External record reviewed: Outpatient record Discharge Plan Discharge Clinical Impression: Autoimmune cerebellar degeneration, Recurrent falls, Falls, At high risk for falls Patient Disposition: Xfer Inpatient Rehab Fac Transfer Details: [facility], DR [facility] CCEPTING Prescriptions: No Action (DME) walker Misc See Rx Instructions .Route Qty: 1 0RF Rx Instructions: 4 wheeled walker w/ seat and brakes- use when walking lorazepam 0.5 mg tablet 0.5 mg PO BEDTIME PRN (Reason: Sleep) cholecalciferol (vitamin D3) 25 mcg (1,000 unit) tablet 25 mcg PO DAILY amlodipine 10 mg tablet 10 mg PO DAILY propranolol 80 mg tablet 80 mg PO BID Referrals: [facility] [Outside] Luis Carrington MD [Primary Care Provider, Internal Medicine] Discharge Date/Time: 07/20/25 18:42 Print Language: Lao
--- NOTE | 2025-07-17 14:04 | PC.NURSE ---
Patient presents to ED after two falls at home Patient has a balance problem, user a walker at home +HS denies LOC, SOB, chest pain, vision changes, and thinners Patient hit the back left of her head Provider in to see patient Patient awaiting CT scans
[2025-07-17 16:39] LABS: MANUAL DIFF FLAG NO
[2025-07-17 16:42] LABS: Hematocrit 42.0 % (37.0-47.0); Hemoglobin 14.0 g/dl (12.0-16.0); Imm Gran Abs Auto 0.06 X10*3/uL (0.00-0.03); Imm Gran Pct Auto 0.5 % (0.0-0.4); Lymphocytes Absolute Auto 2.1 X10*3/uL (1.2-4.9); Mean Corpuscular HGB Conc 33.3 g/dl (31.0-35.0); Mean Corpuscular Hemoglobin 29.9 pg (27.0-33.0); Mean Corpuscular Volume 89.6 fL (80.0-98.0); NRBC Abs Auto 0.000 X10*3/uL (0.0-0.012); NRBC Pct Auto 0.0 /100WBC (0.0-0.2); Platelet Count 259 X10*3/uL (160-400); Red Blood Count 4.69 X10*6/uL (4.20-5.50); White Blood Count 12.7 X10*3/uL (4.8-10.8)
[2025-07-17 16:43] LABS: Appearance Urine Clear; Glucose Urine UA Negative (Negative); PH 6.0 (5.0-9.0); Specific Gravity - Urine 1.015 (1.005-1.025); UMIC TRIGGER UACC YES
[2025-07-17 16:48] LABS: UACC Culture Trigger YES
[2025-07-17 16:52] LABS: Anion Gap 14 (12-20); Blood Urea Nitrogen 23 mg/dL (9-16); Calcium 9.5 mg/dL (8.4-10.2); Carbon Dioxide 25 mmol/L (22-29); Chloride 105 mmol/L (96-108); Creatinine Clr Calc Pharmacy 53.6; Estimated Glomerular Filt Rate > 60; Potassium 3.6 mmol/L (3.3-5.1); Sodium 140 mmol/L (135-145)
--- NOTE | 2025-07-17 18:05 | PC.NURSE ---
case operator at bedside performing assessment w/ patient and pt's daughter.
--- NOTE | 2025-07-17 18:24 | MHC.CM.ED ---
CM met with patient and daughter/HCP Bridget Quiñonez ([phone]). Pt lives alone in her own home. Her HCP is at home. Requested copy. She uses a walker. She has private pay [employer] 2-4 hours/day/5 days a week. Her daughter and her brother cover the weekends. There is no overnight coverage. Pt has been hesitant to have strangers in her home at night. She has PT/OT from [facility] 3 times/week. Pt and family have visited [facility] in [place] for assisted living. They have levels of care there. Patient has been waxing and waning about moving from her home, however she has had 3 falls and is now willing to go. Pt has autoimmune cerebellar degeneration. Her balance issues and ambulation has progressively gotten worse. She may need to use a wheelchair. No Q.S. PT is pending. Pt is not keen on STR, but is agreeable if needed. Will place referrals at acute rehabs. Pt has [employer] [place], but it is secondary. I do not believe it is Medicare Advantage. Pt has funds to private pay for STR if needed. Family is concerned about her being at home with repeated falls and would like some rehab. Will contact [facility] on Sunday.
--- OUTSIDE RECORDS SUMMARY | 2025-07-17 19:21 | XMS_ITS | Patient Health Record ---
Author Organization Luis Carrington III, MD Address [address] [place] [address] DR BARROSO [place] [address] Care Team Providers Care Utility Worker Name Role Phone Dr. Luis Carrington III Primary Care Provider Allergies Allergen (clinical drug ingredient) Drug/Non Drug Allergy documented on EMR Reaction Allergy Type Onset Date Status Dust Mites Unknown Allergy Active amoxicillin Amoxicillin Unknown Drug Allergy Act silvia Results Component Value Reference Range Notes MM tomosynthesis screening B I Reviewed date:05/22/2025 05:04:01 PM Interpretation: Performing Lab: Notes/Report: [facility] [place] [address] Mammography Report Signed Patient: Gretta Gomez MR#: [id number] 1 : 1940 Acct:[id number] Age/Sex: 84 / F ADM Date: 05/20/25 Loc: HO.MAMMO Attending Dr: Luis Carrington MD Ordering Physician: Luis Carrington MD Results: 2Benign Date of Service: 05/20/25 Follow Up: 1 Year From Orig inal Mammogram Procedure(s): MM tomosynthesis screening BI Accession Number(s): [id number] cc: Luis Carrington MD Reason For Exam: [...] 05/20/25 1313 DD/ 1212 TD/TT: 05/20/25 1233 Bereavement Coordinator: [facility] [address] [place] [address] Mammography Report Signed Patient: Dang Gomez MR#: [id number] 1 : 1940 Acct:[id number] Age/Sex: 84 / F ADM Date: 05/20/25 Loc: HO.MAMMO Attending Dr: Luis Carrington MD Ordering Physician: Luis Carrington MD Results: 2Benign Date of Service: 05/20/25 Follow Up: 1 [facility] Procedure(s): MM tomosynthesis screening BI Accession Number(s): [id number] cc: Luis Carrington MD Reason For Exam: [...] scattered areas of fibroglandular density. Right post lumpectom y changes. There are no signifi cant masses, abnormal calcifications, or other abnormalities. M M/MM tomosynthesis screening BI IMPRESSION: No mammographic evid ence of malignancy. ASSESSMENT: BI-RADS Category 2: Benign RECOMMENDATION: Routine annual mammography screening. 1 year F/U This examination huma uld not preclude the clinical evaluation of a suspicious palpable abnormality. This patient's information was entered into a reminder system with a target due date for their next mammogram. Electronically danilo d by: Adore Zarate DO 05/20/2025 01:13 PM EDT RP Workstation: Preact Dictated By: Adore Zarate DO Signed By: <Electronically signed by Adore Zarate DO in OV> 05/20/25 1313 DD/ 1212 TD/TT: 05/20/25 1233 Bereavement Coordinator: Complete Blood Count Auto Di ff (Not yet reviewed by provider) Interpretation: Performing Lab:[facility], [address] [place] [id number] Notes/Report: White Blood Count 12.7 4.8-10.8 X10*3/uL Red Blood Count 4.69 4.20-5.50 X10*6/uL Hemoglobin 14.0 12.0-16.0 g/dl Hematocrit 42.0 37.0-47.0 % Mean Corpuscular Volume 89.6 80.0-98.0 fL Mean Corpuscular Hemoglobin 29.9 27.0-33.0 pg Mean Corpuscular HGB Conc 33.3 31.0-35.0 g/dl Red Cell Distribution Width 13.2 11.0-16.0 % Platelet Count 259 160-400 X10*3/uL Mean Platelet Volume 10.8 9.4-12.3 fL Neutrophils Percent Auto 72.7 45-73 % Imm Gran Pct Auto 0.5 0.0-0.4 % Lymphocytes Percent Auto 16.1 20-40 % Monocytes Percent Auto 8.9 2-11 % Eosinophils Percent Auto 1.5 0-4 % Basophils Percent Auto 0.3 0-2 % NRBC Pct Auto 0.0 0.0-0.2 /100WBC Neutrophils Absolute Auto 9.2 2.0-8.3 x10*3/uL Imm Gran Abs Auto 0.06 0.00-0.03 X10*3/uL Lymphocytes Absolute Auto 2.1 1.2-4.9 X10*3/uL Monocytes Absolute Auto 1.1 0.1-1.2 X10*3/uL Eosinophils Absolute Auto 0.2 0.0-0.4 X10*3/uL Basophils Absolute Auto 0.0 0.0-0.2 X10*3/uL NRBC Abs Auto 0.000 0.0-0.012 X10*3/uL Basic Metabolic Panel (Not y et reviewed by provider) Interpretation: Performing Lab:[address] [address] Notes/Report: Sodium 140 135-145 mmol/L Potassium 3.6 3.3-5.1 mmol/L Chloride 105 96-108 mmol/L Carbon Dioxide 25 22-29 mmol/L Anion Gap 14 12-20 Blood Urea Nitrogen 23 9-16 mg/dL Creatinine 0.77 0.5-1.4 mg/dL Creatinine Clr Calc Pharmacy 53.6 Provided height and weight: 162.56 cm, 71.6 kg. eGFR (calculated from the MDRD study equation) and eCrCl (calculated from the Cockcroft-Gault equation) are based on different parameters and may not yield comparable results. If eCrCl result is absurd, please check patient's height/weight. Estimated Glomerular Filt Rate > 60 Chronic Kidney Disease: Estimated GFR < 60 mL/min/1.73m2 Severe Kidney Disease: Estimated GFR < 15 mL/min/1.73m2 Glucose Random 123 60-115 mg/dL Calcium 9.5 8.4-10.2 mg/dL UA ClnCatch+Micro w/rflx Cul t (Not yet reviewed by provider) Interpretation: Performing Lab:[facility], [address] [place] [phone] Notes/Report: [id number] Urine, Clean Catch Color Urine Yellow Appearance Urine Clear PH 6.0 5.0-9.0 Glucose Urine UA Negative Negative mg/dL Urine Blood Negative Negative Specific [place] - Urine 1.015 1.005-1.025 Urine Protein Negative Neg-Trace mg/dL Urine Ketones Negative Negative mg/dL Nitrite Urine Negative Negative Leukocyte Esterase Urine Moderate (2+) Negative RBC Urine 0-2 0-2 /HPF WBC Urine 11-20 0-5 /HPF Squamous Epithelial Cell Urine 0-2 0-2 /HPF Bacteria Urine None Seen None Seen Hyaline Casts Urine 0-2 0-2 /LPF CT cervical spine wo con (No t yet reviewed by provider) Interpretation: Performing Lab: Notes/Report: [address] [address] [address] Scan Report Signed Patient: Gretta Gomez MR#: [id number] 1 : 1940 Acct:[id number] Age/Sex: 84 / F ADM Date: 07/17/25 Loc: .ED Attending Dr: Ordering Physician: Heydi Rogers DO Date of Service: 07/17/25 Procedure(s): CT cervical spine wo IV con Accession Number(s): [id number] cc: Luis Carrington MD; Heydi Rogers DO Report Number: [id number]: Total DLP = 1125.00 mGy-cm Reason for Exam: falls EXAMINATION: CT CERVICAL SPINE WITHOUT CONTRAST CLINICAL INFORMATION: Trauma, fall COMPARISON: None available. TECHNIQUE: Axial imaging was performed from the base of the skull through T2 without IV contrast. Coronal and sagittal reformatted images were generated from the original axial data set. ALARA: The examination used one or more of the following radiation dose reduction techniques: Automated exposure control, iterative reconstruction, and/or adjustment of mA and/or KV. FINDINGS: There is 10 degrees dextroscoliosis. Moderate to severe degenerative changes are most advanced at C3-4 and C4-5 There is nonsegmentation of the facets on the left between C4-C6. There is mild to moderate facet arthropathy otherwise. No fractures are identified. Soft tissues are unremarkable. CT/CT cervical spine wo IV con IMPRESSION: No acute bony abnormality. Multilevel degenerative disc disease and facet osteoarthritis with nonsegmentation of the facets on the left between C4-C6. Electronically signed by: Usama Guerra MD 07/17/2025 03:37 PM [facility] Dictated By: Usama Guerra MD Signed By: <Electronically signed by Usama Guerra MD in OV> 07/17/25 1537 DD/ 1513 TD/TT: 07/17/25 1529 Bereavement Coordinator: [address] [address] [address] Scan Report Signed Patient: Dang Gomez MR#: [id number] 1 : 1940 Acct:[id number] Age/Sex: 84 / F ADM Date: 07/17/25 Loc: HO.ED Attending Dr: Ordering Physician: Heydi Rogers DO Date of Service: 07/17/25 Procedure(s): CT cervical spine wo IV con Accession Number(s): [id number] cc: Luis Carrington MD; Heydi Rogers DO Report Number: [id number]: Total DLP = 1125.00 mGy-cm Reason for Exam: falls EXAMINATION: CT CERVICAL SPINE WITHOUT CONTRAST CLINICAL INFORMATION: Trauma, fall COMPARISON: None available. TECHNIQUE: Axial laya ging was performed from the base of the skull through T2 without I V contrast. Coronal and sagittal reformatted images were generate d from the original axial data set. ALARA: The examinati on used one or more of the following radiation dose reduction techniques : Automated exposure control, iterative reconstruction, and/ or adjustment of mA and/or KV. FINDINGS: There is 10 degrees dextroscoliosis. Moderate to severe degenerative changes are most advanced at C3-4 and C4-5 There is nonsegmenta tion of the facets on the left between C4-C6. There is mild to moderate facet arthropathy otherwise. No fractures are identified. Soft tissues are unremarkable. C T/CT cervical spine wo IV con IMPRESSION: No acute bony abnormality. Multilevel degenerat silvia disc disease and facet osteoarthritis with nonsegmentation of t he facets on the left between C4-C6. Electronically danilo d by: Usama Guerra MD 07/17/2025 03:37 PM [facility] Dictated By: Usama Guerra MD Signed By: <Electronically signed by Usama Guerra MD in OV> 07/17/25 1537 DD/ 1513 TD/TT: 07/17/25 1529 Bereavement Coordinator: CT head/brain wo con (Not y et reviewed by provider) Interpretation: Performing Lab: Notes/Report: [address] [address] [address] Scan Report Signed Patient: Gretta Gomez MR#: [id number] 1 : 1940 Acct:[id number] Age/Sex: 84 / F ADM Date: 07/17/25 Loc: HO.ED Attending Dr: Ordering Physician: Heydi Rogers DO Date of Service: 07/17/25 Procedure(s): CT head/brain wo IV con Accession Number(s): [id number] cc: Luis Carrington MD; Heydi Rogers DO Report Number: [id number]: Total DLP = 0.00 mGy-cm Reason for Exam: falls EXAMINATION: CT HEAD WITHOUT CONTRAST CLINICAL INFORMATION: Falls. 84-year-old female. COMPARISON: 09/19/2023. TECHNIQUE: Contiguous axial imaging was performed from the skull base to vertex without intravenous administration of contrast. This CT examination was performed using dose optimization techniques as appropriate, variously including the following: *Automated exposure control *Adjustment of mA and/or kV according to patient size (this includes techniques or standardized protocols for targeted exams where dose is matched to indication/reason for exam; i.e. extremities or head) *Use of iterative reconstruction technique FINDINGS: There is no evidence of intracranial hemorrhage or extra-axial fluid collection. There is no mass effect, or edema. No CT evidence of acute territorial infarct. Ventricles, sulci, and cisterns are normal in size and configuration for patient age. No hydrocephalus. No midline shift. Negative hyperdense MCA sign. Negative insular ribbon sign. Patchy periventricular and deep white matter hypoattenuation is consistent with moderate small vessel ischemic changes. 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 Normal pituitary. Mild atheromatous calcification of the bilateral carotid siphons and V4 segments vertebral arteries bilaterally. Globes and orbital contents image normally. There are bilateral lens replacements. There are Ciliary body calcifications. No extracranial soft tissue abnormalities. The paranasal sinuses, mastoid air cells, and tympanic cavities are normally aerated. No suspicious bony abnormalities. There are no acute fractures evident. CT/CT head/brain wo IV con IMPRESSION: No acute intracranial abnormality. No acute fracture evident. Electronically signed by: Tim Hightower MD 07/17/2025 03:37 PM [facility] Dictated By: Tim Hightower MD Signed By: <Electronically signed by Tim Hightower MD in OV> 07/17/25 1537 DD/ 1513 TD/TT: 07/17/25 1529 Bereavement Coordinator: [place] [address] CT Scan Report Signed Patient: Dang Gomez MR#: [id number] 1 : 1940 Acct:[id number] Age/Sex: 84 / F ADM Date: 07/17/25 Loc: HO.ED Attending Dr: Ordering Physician: Heydi Rogers DO Date of Service: 07/17/25 Procedure(s): CT head/brain wo IV con Accession Number(s): [id number] cc: Luis Carrington MD; Heydi Rogers DO Report Number: [id number]: Total DLP = 0.00 mGy-cm Reason for Exam: falls EXAMINATION: CT HEAD WITHOUT CONTRAST CLINICAL INFORMATION: Falls. 84-year-old female. COMPARISON: 09/19/2023. TECHNIQUE: Contiguous axial laya ging was performed from the skull base to vertex without intravenous administration of contrast. This CT examination was performed using dose optimization techniques as appropriate, various ly including the following: *Automated exposure control *Adjustment of mA an d/or kV according to patient size (this includes techniques or standardized protocols for targeted exams where dose is matched to indication/reason for exam; i.e. extremities or head) *Use of iterative reconstruction technique FINDINGS: There is no evidence of intracranial hemorrhage or extra-axial fluid collection. There is no mass eff ect, or edema. No CT evidence of acute territorial infarct. Ventricles, sulci, a nd cisterns are normal in size and configuration for patient age. No hydrocephalus. No midline shift. Negative hyperdense MCA sign. Negative insular ribbon sign. Patchy periventricul ar and deep white matter hypoattenuation is consistent with mode rate small vessel ischemic changes. There are old lacuna r infarcts in the bilateral anterior gangliocapsular regions. Normal pituitary. Mild atheromatous calcification of the bilateral carotid siphons and V4 segments vertebral arteries bilaterally. Globes and orbital contents image normally. There are bilateral lens replacements. There are Ciliary body calcifications. No extracranial soft tissue abnormalities. The paranasal sinuse s, mastoid air cells, and tympanic cavities are normally aerated. No suspicious bony abnormalities. There are no acute fractures evident. C T/CT head/brain wo IV con IMPRESSION: No acute intracrania l abnormality. No acute fracture evident. Electronically danilo d by: Tim Hightower MD 07/17/2025 03:37 PM EST Dictated By: Tim Hightower MD Signed By: <Electronically signed by Tim Hightower MD in OV> 07/17/25 1537 DD/ 1513 TD/TT: 07/17/25 1529 Bereavement Coordinator: XR chest 2V (Not yet reviewe d by provider) Interpretation: Performing Lab: Notes/Report: [address] [address] XRay Report Signed Patient: Gretta Gomez MR#: [id number] 1 : 1940 Acct:[id number] Age/Sex: 84 / F ADM Date: 07/17/25 Loc: .ED Attending Dr: Ordering Physician: Unruly Sim Date of Service: 07/17/25 Procedure(s): XR chest 2V Accession Number(s): [id number] cc: Luis Carrington MD; Unruly Sim Reason for Exam: weakness, falls CLINICAL HISTORY: weakness, falls 2 view chest x-ray Comparison: None provided Findings: Heart size is top-normal. Atherosclerotic vascular disease. Low lung volumes. Bilateral interstitial prominence. Mild left basilar subsegmental atelectasis/scarring. No consolidation, pleural effusion or pneumothorax. Previous right mastectomy with right axillary surgical clips. No acute fracture. Nonacute fracture of right humeral neck. IMPRESSION: 1. Bilateral interstitial prominence could be acute or chronic. 2. Mild left basilar atelectasis/scarring. 3. Additional nonacute findings as described. This document has been electronically signed by: Justine Choudhary MD on 07/17/2025 18:23:48 Dictated By: Justine Choudhary MD Signed By: <Electronically signed by Justine Choudhary MD in OV> 07/17/251823 DD/ 22 TD/TT: 07/17/251822 Bereavement Coordinator: [place] [address] XRay Report Signed Patient: Dang Gomez MR#: [id number] 1 : 1940 Acct:[id number] Age/Sex: 84 / F ADM Date: 07/17/25 Loc: .ED Attending Dr: Ordering Physician: Unruly Sim Date of Service: 07/17/25 Procedure(s): XR wade st 2V Accession Number(s): [id number] cc: Luis Carrington MD; Unruly Sim Reason for Exam: weakness, falls CLINICAL HISTORY: weakness, falls 2 view chest x-ray Comparison: None provided Findings: Heart size is top-normal. Atherosclerotic vascular disease. Low lung volumes. Bilateral interstiti al prominence. Mild left basilar subsegmental atelectasis/scarring. No consolidation, pleural effusion or pneumothorax. Previous right mastectomy with right axillary surgical clips. No acute fracture. Nonacute fracture of right humeral neck. IMPRESSION: 1. Bilateral interstitial prominence could be acute or chronic. 2. Mild left basilar atelectasis/scarring. 3. Additional nonacu te findings as described. This document has be en electronically signed by: Justine Choudhary MD on 07/17/2025 18:23:48 Dictated By: Justine Choudhary MD Signed By: <Electronically signed by Justine Choudhary MD in OV> 07/17/251823 DD/ 22 TD/TT: 07/17/251822 Bereavement Coordinator: Reason For Referral Reason bilateral hearing lo ss evaluate and treatment hearing aides needed Diagnosis 1 Bilateral hearing lo ss, unspecified hearing loss type (H91.93) Referral Organization Luis Carrington III, MD Referring Provider First Name Luis Referring Provider Last Name Charissa Referring Provider Speciality Internal M edicine Referred Provider Speech Hearing [facility] Referred Provider Specialty Audiologists General Notes Amber Dimas CRISTOPHER 03/24 09:44:06 AM >ref/progress note faxed to speech and hearing dept at the [facility] pt aware of this, Amber Dimas CRISTOPHER 04/13/2025 03:15:46 PM > I called spoke [...] tablet Orally Once a day 04/11/2024 Active Citalopram Hydrobromide 10 MG TAKE 1 TABLET BY MOUTH EVERY DAY FOR 30 DAYS Active Propranolol HCl 80 MG TAKE 1 TABLET BY M OUTH TWICE A DAY Active Propranolol HCl 80 MG TAKE 1 TABLET BY M OUTH TWICE A DAY FOR 90 DAYS for 90 Active LORazepam 0.5 MG 1 tablet at bedtime Orally Once a day for 28 days 07/01/2025 Active Tylenol 325 MG 1 tablet as needed O rally every 4 hrs Active Vitamin D 25 MCG (1000 UT) 1 tablet Oral ly Once a day 12/29/2022 Active Immunizations Vaccine Route Administration Date Status [...] W/U Status Risk Notes Problem Anxiety disorder (689415360) Anxiety disorder, unspecified (F41.9) Active confirmed After her next visit and appropriate therapy will be selected. Currently I have advised her to stop her medications Problem 8084983 Former smoker (Z87.891) Active confirmed She is highly motivated not to smoke. She feels well today and has no cough. We have a plan for prevention of relapse in times of stress and illness. Problem 90326684 Hyperlipidemia (E78.5) Active confirmed No blood work is available. Her lipids have been elevated in the past. We discussed this at length. She does not wish to take more medication at this time.The risks and benefits of statin medication were discussed with her at length. She declined a prescription. Problem 363441883 Overweight (E66.3) Active confirmed Her body mass index is 26.7. She has lost 4 pounds. We discussed diet and nutrition today. We made a weight loss plan. Problem 04784189 Hypertension (I10) Active confirmed Her blood pressure today is 138/72 and no change in her regimen was necessary. Problem 892322406 Breast cancer (C50.919) Active confirmed There is currently no sign of relapse or a new primary. Surveillance will continue. A CT scan of the brain has been ordered to rule out metastatic disease. In view of the worsening cerebellar ataxia Problem 18237320 Anxiety (F41.9) Active confirmed This has been a growing problem with her. She was given a trial of sertraline. Problem Hyperlipidemia (49291068) Other hyperlipidemia (E78.4) Active confirmed Her lipids are currently stable. Her weight is stable. We reviewed her diet today. 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 She was instructed to use a walker at all times and avoid dangerous situations. A CT scan of the brain is within normal limits for her age She has a neurology consultation coming up for follow-up of worsening ataxia. This appears to be a cerebellar ataxia. Problem 827720305 Osteopenia (M85.80) Active confirmed She will continue on current therapy and we will check her vitamin D. A bone density test has been ordered and is pending. Problem 87498872 Sciatica (M54.30) Active confirmed The back pain has improved significantly and is a minor complaint today. No change in her regimen was needed. Problem 54479655 Vitamin D deficiency (E55.9) Active confirmed She was continued on her vitamin D therapy. Problem Ataxia () Ataxia (R27.0) Active confirmed Problem 66090135 Bilateral hearing loss, unspecified hearing loss type (H91.93) Active confirmed Problem 737745356 Age-related incipient cataract of both eyes (H25.093) Active confirmed She may proce ed to cataract surgery. I have seen her and examined. Taken her history. The risk of surgery is small and benefits great. She is medically cleared for the procedure. 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 Problem Screening for malignant neoplasm of breast (961065196) Breast cancer screening by mammogram (Z12.31) Active confirmed We have scheduled her annual screening mammogram. 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 She needed [...] Date Provider Diagnosis Luis Carrington III, MD [address] [place] [address] [place] [address] 07/18/2024 Luis Carrington Hyperlipidemia E78.5 ; Breast cancer C50.919 ; Former smoker Z87.891 ; Hypertension I10 ; Overweight E66.3 ; Osteopenia M85.80 ; Spasmodic dysphonia J38.3 and Other hyperlipidemia E78.4 Luis Carrington III, MD [address] [place] [address] [place] [address] 11/17/2024 Luis Carrington Hyperlipidemia E78.5 ; Hypertension I10 ; Vitamin D deficiency E55.9 ; Osteopenia M85.80 ; Former smoker Z87.891 ; Breast cancer C50.919 ; Overweight E66.3 and Spasmodic dysphonia J38.3 Luis Carrington III, MD [address] [place] [address] [place] [address] 03/23/2025 Luis Carrington Hyperlipidemia E78.5 ; Breast cancer C50.919 ; Hypertension I10 ; Vitamin D deficiency E55.9 ; Overweight E66.3 ; Screening mammogram for breast cancer Z12.31 ; Former smoker Z87.891 and Osteopenia M85.80 Luis Carrington III, MD [address] [place] [address] [place] [address] 07/17/2025 Luis Carrington III, MD [address] [place] [address] [place] [address] 12/26/2024 Luis Carrington III, MD [address] [place] [address] [place] [address] 05/22/2025 Luis Carrington High glucose R73.09 Luis Carrington III, MD [address] [place] [address] [place] [address] 06/11/2025 Luis Carrington III, MD [address] [place] [address] [place] [address] 06/17/2025 Luis Carrington III, MD [address] [place] [address] [place] [address] 06/18/2025 Luis Carrington III, MD [address] [place] [address] [place] [address] 06/19/2025 Luis Carrington III, MD [address] [place] [address] [place] [address] 06/23/2025 Luis Carrington Hyperlipidemia E78.5 ; Hypertension I10 ; Spasmodic dysphonia J38.3 ; Anxiety F41.9 and Syncope, unspecified syncope type R55 Luis Carrington III, MD [address] [place] [address] [place] [address] 06/24/2025 Luis Carrington III, MD [address] [place] [address] [place] [address] 06/30/2025 Luis Carrington III, MD [address] [place] [address] [address] [place], [place] [address] 07/01/2025 Luis Carrington Assessments Encounter Date Diagnosis (ICD [...] In view of the worsening cerebellar ataxia 05/22/2025 High glucose (ICD-10 - R73.09) 06/23/2025 Hyperlipidemia (ICD-10 - E78.5) 07/18/2024 Former smoker (ICD-10 - Z87.891) She [...] no change in her regimen was necessary. 06/23/2025 Hypertension (ICD-10 - I10) 07/18/2024 Hypertension (ICD-10 - I10) We discussed [...] was continued on her vitamin D therapy. 06/23/2025 Spasmodic dysphonia (ICD-10 - J38.3) 07/18/2024 Overweight (ICD-10 - E66.3) She remains [...] today. We made a weight loss plan. 06/23/2025 Anxiety (ICD-10 - F41.9) 07/18/2024 Osteopenia (ICD-10 - M85.80) She will [...] Z12.31) Her annual mammogram has been scheduled. 06/23/2025 Syncope, unspecified syncope type (ICD-10 - R55) 07/18/2024 Spasmodic dysphonia (ICD-10 - J38.3) The [...] in times of stress and illness. 07/18/2024 Other hyperlipidemia (ICD-10 - E78.4) Her [...] C) 01/21/2021 PROFILE, FASTING (COMPREHENSIVE METABOLI C) 06/23/2025 PROFILE, FASTING (COMPREHENSIVE METABOLI C) 10/11/2021 PROFILE, [...] CBC w DIFF 03/23/2025 CBC w DIFF 06/23/2025 CBC w DIFF 08/07/2019 CBC w DIFF 11/17/2024 CBC w DIFF 01/21/2021 CBC w DIFF 10/11/2021 CBC w DIFF 01/16/2019 CBC w DIFF 11/09/2020 CBC w DIFF 07/03/2023 CBC w DIFF 05/16/2022 SED RATE (ESR) 04/10/2024 VITAMIN D 25-OH TOTAL 10/24/2017 CBC WITH AUTO DIFF 08/14/2023 CBC WITH AUTO DIFF 04/10/2024 CBC WITH AUTO DIFF 07/18/2024 Complete Blood Count Auto Diff Basic Metabolic Panel 07/17/2025 Magnesium 07/03/2023 Lipid Panel 07/18/2024 Lipid Panel 05/16/2022 Lipid Panel 07/03/2023 Lipid Panel 08/14/2023 Lipid Panel 03/23/2025 Lipid Panel 04/10/2024 Lipid Panel 06/23/2025 Lipid Panel 11/17/2024 Vitamin B12 07/03/2023 Vitamin B12 08/14/2023 Vitamin B1 08/14/2023 Vitamin D 25-OH Total 05/16/2022 Vitamin D 25-OH Total 03/23/2025 Vitamin D 25-OH Total 11/17/2024 Free T4 (Free Thyroxine) 07/03/2023 CT cervical spine wo con 07/17/2025 CT head/brain wo con 07/17/2025 MM tomosynthesis screening BI 03/23/2025 XR chest 2V 07/17/2025 Hemoglobin A1c 06/23/2025 Hemoglobin A1c 07/03/2023 Hemoglobin A1c 05/22/2025 UA ClnCatch+Micro w/rflx Cult 07/17/2025 Next Appt Details Provider Name:Luis Carrington , 07/22/2025 10:00:00 AM, [address] [place] [address] DR, CHIO Ashley, [place], [address], Insurance Providers Payer Name Payer Address Payer Phone Subscriber Number Group Number Insured Name Patient Relationship to Insured Coverage Start Date Coverage End Date MEDICARE NGS [address] [place] [phone] [id number] Gretta Gomez Self - patient is the insured [employer] [address] [place], [place] [id number] Gretta Gomez Self - patient is the insured Medical (General) History Medical History History ICD Code 1985 invasive right breast cancer:RT/CMF /[facility]/lumpectomy hypertension hyperlipidemia anxiety osteopenia 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 Right knee arthroplasty Surgical History Surgery Date(Month/Year) No history right knee arthroplasty 07/21/2020 [facility] Orthopedic 07/2020 right cataract 06/2019 left cataract 05/2019 lumpectomy right breast 1986 Hospitalization History Reason Date(Month/Year) No history
--- OUTSIDE RECORDS SUMMARY | 2025-07-17 19:21 | XMS_ITS | Patient Health Record ---
Author Organization [facility] Address [address] [place] [address] Care Team Providers Care Naval Engineer Name Role Phone Charissa MCKOY, Luis Primary Care Provider Bhavani Guevara Unavailable [phone] Reason For Referral No Information Medications Medication [...] Medicare National Govt [employer] [address] [facility] [place] [address] [phone] [id number] Gretta Gomez Self - patient is the insured [facility] All Others [address] [place] [address] [phone] [id number] Michelle Gomezlie Self - patient is the insured Medical (General) History Medical History History ICD Code Cholesterol Cancer High blood pressure Measles Mumps Chicken pox Surgical History Surgery Date(Month/Year) breast surgery 1988 Hospitalization History Reason Date(Month/Year) Admitted to [facility] for pneamonia 5 day s.
--- OUTSIDE RECORDS SUMMARY | 2025-07-17 19:21 | XMS_ITS | Clinical Summary ---
Author Organization [facility] Address [address] [place] [address] Care Team Providers Care Physical Therapy Asst Name Role Phone Luis Carrington Primary Care Provider [phone] Luis Carrington Unavailable Allergies No known active [...] when she was evaluated by an outside meeting manager. 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 Our plan will be to have the patient be seen our movement disorder neurologist or similar specialist in the [facility] for work-up with her tremor. If [...] of 2) 1991 COVID-19 Vaccine (1 - 2024-2 6 season) 2025 Influenza Vaccine (#1) 2025 HPV [...] MEDICARE PART A & B Care Teams Physical Therapy Asst Relationship Specialty Start Date End Date Luis Carrington [address] [address] PCP - General 10/31/18 Luis Carrington [address] [address] PCP - Insurance Payer PCP 06/05/23
--- NOTE | 2025-07-17 20:05 | PC.NURSE ---
Dtr Suzanne called for update - RN informed her pt will f/u with pt/cm given her falls. scans all negative.
--- NOTE | 2025-07-17 20:07 | PC.NURSE ---
Dtr Bridget Quiñonez was at bedside with pt. She lives in [place] and wants to be contacted in regards to mothers plan of car. phone #: [phone].
[2025-07-18 06:00] VITALS: BP 121/58; PULSE 68; RESP 18; TEMP 36.9; O2SAT 96
--- NOTE | 2025-07-18 09:38 | PHA.MEDREC ---
Pharmacy Consult ? Medication Reconciliation Pharmacy has completed the medication reconciliation.
[2025-07-18 10:21] VITALS: BP 134/58; PULSE 68
[2025-07-18 10:24] VITALS: BP 134/58
--- NOTE | 2025-07-18 13:13 | MHC.CM.ED ---
Addendum entered by Haley Thomas 07/18/25 14:40: No acute rehab bed offers at this time. Referral for private pay SNF will be broadcasted within 15 miles of patient's home. Original Note: Patient remains in ER overflow. Physical therapy eval completed. Rehab is recommended. [facility] is unable to offer a bed. Clinical updates sent to Joy and Sam. Continue to monitor for d/c needs.
[2025-07-18 13:43] VITALS: BP 134/60; PULSE 65; RESP 18; TEMP 36; O2SAT 92
[2025-07-18 19:54] VITALS: BP 158/73; PULSE 66; RESP 16; TEMP 36.7; O2SAT 94
[2025-07-18 20:51] VITALS: BP 158/73; PULSE 66
[2025-07-19 05:39] VITALS: BP 130/63; PULSE 68; RESP 14; TEMP 36.7; O2SAT 95
[2025-07-19 14:00] VITALS: BP 130/73; PULSE 86; RESP 19; TEMP 36.2; O2SAT 97
--- NOTE | 2025-07-19 15:00 | MHC.CM.ED ---
Addendum entered by Haley Thomas 07/19/25 15:24: Patient's daughter, Bridget Quiñonez, updated about plan via telephone at [phone]. Bridget Quiñonez requesting facility reach out to her about financials. [facility] made aware. Original Note: Patient remains in ER overflow. [facility], [facility] and [facility] are able to offer private pay STR with 2 weeks up front. Multiple other facilities reviewing. Met with patient. Patient accepts bed at [facility]. Facility made aware to reach out to patient. Patient will go via BLS when financials arranged between facility and patient. Continue to monitor for d/c needs.
[2025-07-19 20:30] VITALS: BP 141/63; PULSE 63; RESP 18; TEMP 36.7; O2SAT 97
[2025-07-19 21:04] VITALS: BP 141/63; PULSE 63
[2025-07-20 05:57] VITALS: BP 120/57; PULSE 68; RESP 16; TEMP 36.8; O2SAT 98
[2025-07-20 07:43] VITALS: BP 120/57; PULSE 68
--- NOTE | 2025-07-20 09:38 | PC.NURSE ---
Assumed care of patient at 0645, Pt alert and oriented x 4, calm and cooperative with care. VSS, on room air unlabored breathing. PRN tylenol administered for back pain. Bed alarm on for safety
[2025-07-20 14:00] VITALS: BP 134/68; PULSE 60; RESP 20; TEMP 36.9; O2SAT 95
--- NOTE | 2025-07-20 14:26 | MHC.CM.ED ---
Addendum entered by Kailee Berg 07/20/25 16:09: Pt has been cleared to transfer to [facility] this evening at 6pm via [facility]. ED PA and RN aware of plan. Original Note: Pt's dtr Bridget Martin on her way to ED to have pt sign a check for private pay to [facility]. Facility aware that dtr should be there today. Waiting for [facility] to give time for BLS transport arrangement. ED CM to follow.
[2025-07-20 17:42] VITALS: BP 121/62; PULSE 70; RESP 16; TEMP 37; O2SAT 95
== END 2025-07-20 18:42 ==
PROVIDERS: Emergency Provider Emergency Medicine; PCP Internal Medicine Medical Oncology
DX: G11.9 Hereditary ataxia, unspecified (principal); R29.6 Repeated falls; Z91.81 History of falling; G25.9 Extrapyramidal and movement disorder, unspecified; Z79.899 Other long term (current) drug therapy
CPT/HCPCS: 36415; 70450; 71046; 72125; 80048; 81001; 85025; 87086; 97162; 99285

== ENCOUNTER → 2025-07-17 13:33 | Outpatient (BNV) | payer MEDICARE, BC, SELFPAY | PROVIDERS: Emergency Provider Emergency Medicine; PCP Internal Medicine Medical Oncology; Visit Provider Radiology Diagnostic Radiology | DX: R29.6 Repeated falls (principal) | CPT/HCPCS: 70450; 72125 ==